=== PATIENT | female | born 1960 | race Caucasian/White ===

== ENCOUNTER 2021-01-14 11:29 | Outpatient (NON) | payer OTHER, SELFPAY | END 2021-01-14 11:30 | PROVIDERS: Visit Provider Family Medicine | DX: M54.5 Low back pain (principal) | CPT/HCPCS: 87077; 87086; 87088; 87186 ==

== ENCOUNTER 2021-02-25 14:34 | Outpatient (NON) | payer OTHER, SELFPAY | END 2021-02-25 14:35 | disposition home or self-care (01) | PROVIDERS: Visit Provider Family Medicine | DX: N39.0 Urinary tract infection, site not specified (principal) | CPT/HCPCS: 87077; 87086; 87088; 87186 ==

== ENCOUNTER 2021-04-20 14:16 | Outpatient (NON) | payer OTHER, SELFPAY | END 2021-04-20 14:17 | disposition home or self-care (01) | LOC: CHSLAB 14:17 | PROVIDERS: Visit Provider Nurse Practitioner Family | DX: N39.0 Urinary tract infection, site not specified (principal) | CPT/HCPCS: 87077; 87086; 87088; 87186 ==

== ENCOUNTER 2021-10-03 11:22 | Emergency (ER) | payer OTHER, SELFPAY ==
--- NOTE | ~2021-10-03 | XR_ITS ---
XR chest 1V portable DATE: 10/03/2021 12:34 INDICATION: Shortness of breath TECHNIQUE: Portable AP chest on 10/03/2021 at 1225 hours COMPARISON: None FINDINGS: Normal heart size. Is aortic tortuosity. No hilar or mediastinal enlargement. Moderate bilateral hyperinflation. No pulmonary infiltrate or consolidation, pleural effusion or pulm onary vascular congestion or pneumothorax. Bilateral glenohumeral osteoarthritis. Scoliosis and degenerative change of the thoracolumbar spine. IMPRESSION: Moderate bilateral hyperinflation, suggesting obstructive airways disease. No active cardiopulmonary disease Reviewed, dictated and finalized at location A. ERER IMPRESSION: Moderate bilateral hyperinflation, suggesting obstructive airways d isease. No active cardiopulmonary disease
[2021-10-03 11:25] VITALS: BP 136/84; PULSE 95; RESP 18; TEMP 36.4; O2SAT 92
--- NOTE | 2021-10-03 11:38 | ED.SOB ---
HPI - SOB/Dyspnea General Chief Complaint: Shortness of Breath/Dyspnea Stated Complaint: SOB, wheezing, productive cough Time Seen by Provider: 10/03/21 11:38 Source: patient History of Present Illness HPI Narrative: 60-year-old female, smoker with a history of bipolar disorder, GERD, IBS, chronic diarrhea, RLS, COPD on bronchodilators and inhaled steroids presents to the ER via EMS -- exposure to COVID 8 days ago -- cough with mucopurulent sputum for the past 3 days -- worsening shortness of breath for the past 3 days patient had COVID vaccination last year and had a booster 4 weeks ago. MD elicited complaint: shortness of breath and cough Pertinent past history: COPD Onset (ago): day(s) ( 3 days) Exacerbating factors: exertion Known history of: COPD Associated symptoms: denies other symptoms, cough and sputum production Related Data Home oxygen amount: none Home Medications Medication Instructions Recorded Confirmed albuterol sulfate 90 mcg/actuation 2 puff INHALATION BID 07/09/20 10/03/21 aerosol inhaler budesonide-formoterol HFA 80 2 puff INHALATION DAILY 07/09/20 10/03/21 mcg-4.5 mcg/actuation aerosol inhaler doxepin 25 mg capsule 25 mg PO DAILY cap 07/09/20 10/03/21 escitalopram oxalate 20 mg tablet 20 mg PO DAILY tablet 07/09/20 10/03/21 lithium carbonate 300 mg capsule 900 mg PO .COMPLEX cap 01/14/21 10/03/21 Allergies Allergy/AdvReac Type Severity Reaction Status Date / Time Penicillins Allergy Intermediate Rash Verified 08/20/21 14:55 Sulfa (Sulfonamide Allergy Intermediate rash Verified 08/20/21 14:55 Antibiotics) Review of Systems Review of Systems: All systems reviewed & are unremarkable except as noted in HPI and below Constitutional: Constitutional: Reports as per HPI Eyes: Eyes: Reports as per HPI ENT: Reports system reviewed and no additional complaints, except as documented Cardiovascular: Cardiovascular: Reports as per HPI and Reports no additional cardiovascular complaints Respiratory: Respiratory: Reports as per HPI and Reports no additional respiratory complaints Gastrointestinal: Gastrointestinal: Reports as per HPI and Reports no additional gastrointestinal complaints Genitourinary: Genitourinary: Reports no additional female genitourinary complaints Musculoskeletal: Musculoskeletal: Reports no additional musculoskeletal complaints Integumentary/Breasts: Skin/Breast: Reports system reviewed and no additional complaints, except as docu Neurologic: Reports system reviewed and no additional complaints, except as documented Psychiatric: Psychiatric: Reports no additional psychiatric complaints and Reports anxiety Endocrine: Endocrine: Reports no additional endocrine complaints Hematologic/Lymphatic: Hematologic/Lymphatic: Reports no additional hematologic/lymphatic complaints Allergic/Immunologic: Allergic/Immunologic: Reports no additional allergic/immunologic complaints [facility] Past Medical History Medical History Bipolar 1 disorder Chronic GERD COPD (chronic obstructive pulmonary disease) (Unknown) Depression Diarrhea IBS (irritable colon syndrome) Nausea Nicotine addiction Oral candidiasis Plantar wart, right foot Tremor UTI (urinary tract infection), uncomplicated Viral upper respiratory illness Surgical History Surgical History Hx laparoscopic cholecystectomy Family History Family History Father Hypertension Mother Cancer Social History Social History Smoking packs per day: 1.5 Smoking cigarettes per day: 30.0 Years smoked: 30 Smoking pack-years: 45.00 Smoking status: Current every day smoker Tobacco type: cigarettes Alcohol intake: never Substance use: never Exam Const: General: ill appe
--- NOTE | 2021-10-03 11:47 | ECG_ITS ---
Measurements Intervals [place] Rate: 87 P: 69 CA: 154 QRS: 51 QRSD: 95 T: 41 QT: 334 QTc: 403 Interpretive Statements SINUS RHYTHM BASELINE ARTIFACT- I, II, III, AVR, AVL, AVF, V4-V6 BORDERLINE ECG Electronically Signed On 10-03-2021 21:07:36 AIRCRAFT SERVICER by Eduardo Cooney D.O.
[2021-10-03 12:07] LABS: Basophils Absolute Auto 0.08 K/mm3 (0.00-0.10); Eosinophils Absolute Auto 0.42 K/mm3 (0.02-0.50); Eosinophils Percent Auto 5.5 % (1.0-6.0); Hematocrit 46.2 % (35.0-49.0); Hemoglobin 14.8 g/dL (12.0-15.0); Immature Granulocyte Absolute 0.03 K/mm3 (0.00-0.00); Immature Granulocyte Percent A 0.4 % (0.0-0.0); Lymphocytes Absolute Auto 1.68 K/mm3 (1.10-4.50); Lymphocytes Percent Auto 21.8 % (18.0-42.0); Mean Corpuscular Hemoglobin 33.7 pg (27.0-31.0); Mean Corpuscular Volume 105.2 fL (78.0-102.0); Mean Platelet Volume 9.6 fl (9.2-11.8); Monocytes Absolute Auto 0.77 K/mm3 (0.10-0.90); Neutrophils Absolute Auto 4.7 K/mm3 (1.7-7.2); Neutrophils Percent Auto 61.3 % (50.0-70.0); Platelet Count Result 293 K/mm3 (150-420); Red Blood Count 4.39 M/mm3 (4.20-5.40); Red Cell Distribution Width 12.1 % (11.6-14.4); White Blood Count 7.7 K/mm3 (4.8-10.8)
[2021-10-03] MEDS: ALBUTEROL SULFATE (*SP) INHALER 4 PUFF INHALATION (12:10)
[2021-10-03 12:25] VITALS: O2SAT 97
[2021-10-03 12:25] LABS: D Dimer 0.24 mg/L (0.19-0.50)
[2021-10-03 12:28] LABS: Influenza A QL RT-PCR Negative (Negative); Influenza B QL RT-PCR Negative (Negative); SARS-CoV-2 RNA PCR Negative (Negative)
[2021-10-03 12:34] LABS: Alanine Aminotransferase 24 U/L (14-59); Albumin Level 3.9 g/dL (3.4-5.0); Alkaline Phosphatase 91 U/L (46-116); Anion Gap 6 mmol/L (8-16); Aspartate Amino Transferase 17 U/L (15-37); Bilirubin,Total 0.4 mg/dL (0.00-1.00); Blood Urea Nitrogen 17 mg/dL (7-18); Calcium 9.7 mg/dL (8.5-10.1); Carbon Dioxide 30 mmol/L (21-32); Chloride 105 mmol/L (98-108); Estimated CRCL calculation 59 ml/min; Estimated Glomerular Filt Rate > 60; Glucose 103 mg/dL (70-99); NT Pro B Type Natriuretic Pept 87 pg/mL (0-125); Osmolality Calculated 293 mOsm/kg (285-295); Potassium 4.8 mmol/L (3.5-5.1); Sodium 141 mmol/L (136-145); Total Protein 7.1 g/dL (6.4-8.2); Troponin I 4.3 ng/L (0.00-60.4)
[2021-10-03] MEDS: AZITHROMYCIN 250 MG TABLET 500 MG PO (12:50)
[2021-10-03] MEDS: methylPREDNISolone SOD SUCC 125 MG VIAL IM (12:50)
[2021-10-03 13:04] VITALS: BP 121/78; PULSE 90; RESP 20; TEMP 37; O2SAT 92
== END 2021-10-03 13:05 | disposition home or self-care (01) ==
PROVIDERS: Emergency Provider Internal Medicine Critical Care Medicine; PCP Nurse Practitioner Family
DX: J44.1 Chronic obstructive pulmonary disease with (acute) exacerbation (principal); Z20.822 Contact with and (suspected) exposure to COVID-19
CPT/HCPCS: 36415; 71045; 80053; 83880; 84484; 85025; 85380; 87502; 93005; 96372; 99283; 99284; A9270; C9803; J2930; U0003; U0005

== ENCOUNTER 2021-12-10 17:30 | Emergency (ER) | payer OTHER, SELFPAY ==
--- NOTE | ~2021-12-10 | XR_ITS ---
EXAMINATION: XR chest 1V portable 12/10/2021 17:59 INDICATION: Wheezing. Dyspnea. PROCEDURE: AP portable chest COMPARISON: 10/03/2021 FINDINGS: The lungs are clear. The cardiomediastinal silhouette is within normal limits. There are no pleural effusions. There is no pneumothorax suspected. IMPRESSION: 1: NO ACUTE CARDIOPULMONARY DISEASE. Reviewed, dictated and finalized at location A. ICIAN CHIEF OF PATHOLOGY
[2021-12-10 17:37] VITALS: BP 123/76; PULSE 96; RESP 22; TEMP 37.1; O2SAT 94
--- NOTE | 2021-12-10 17:46 | ECG_ITS ---
Measurements Intervals [place] Rate: 89 P: 61 NV: 150 QRS: 44 QRSD: 89 T: 23 QT: 328 QTc: 401 Interpretive Statements SINUS RHYTHM NORMAL EKG COMPARED TO ECG 10/03/2021 12:20:25 NO SIGNIFICANT CHANGES Electronically Signed On 12-11-2021 10:20:05 INNOVATION MANAGER by Jaspal Cornejo M.D.
--- NOTE | 2021-12-10 17:49 | ED.WEAKNESS ---
HPI - Weakness General Chief complaint: Weakness Stated complaint: AMB Time Seen by Provider: 12/10/21 17:49 Source: patient and EMS Mode of arrival: EMS History of Present Illness HPI Narrative: this is a 61-year-old female with history of COPD with pie bipolar disorder and history of depression presents via EMS with generalized weakness the patient with history of COPD has audible wheezes is mildly short of breath with no chest pain no abdominal pain states that she has been having increased urinary frequency with no nausea vomiting chills with no fevers no diarrhea or constipation. MD Complaint: generalized weakness Onset (ago): day(s) Duration: constant Location: generalized Severity: moderate Related Data Home Medications Medication Instructions Recorded Confirmed albuterol sulfate 90 mcg/actuation 2 puff INHALATION BID 07/09/20 11/26/21 aerosol inhaler budesonide-formoterol HFA 80 2 puff INHALATION DAILY 07/09/20 11/26/21 mcg-4.5 mcg/actuation aerosol inhaler doxepin 25 mg capsule 25 mg PO DAILY cap 07/09/20 11/26/21 lithium carbonate 300 mg capsule 900 mg PO .COMPLEX cap 01/14/21 11/26/21 escitalopram oxalate 10 mg tablet 10 mg PO DAILY tablet 11/26/21 11/26/21 Allergies Allergy/AdvReac Type Severity Reaction Status Date / Time Penicillins Allergy Intermediate Rash Verified 11/26/21 10:36 Sulfa (Sulfonamide Allergy Intermediate rash Verified 11/26/21 10:36 Antibiotics) Review of Systems Review of Systems: All systems reviewed & are unremarkable except as noted in HPI and below PMFSH Past Medical History Medical History Bipolar 1 disorder Chronic GERD COPD (chronic obstructive pulmonary disease) (Unknown) Depression Diarrhea IBS (irritable colon syndrome) Nausea Nicotine addiction Oral candidiasis Plantar wart, right foot Tremor UTI (urinary tract infection), uncomplicated Viral upper respiratory illness Surgical History Surgical History Hx laparoscopic cholecystectomy Family History Family History Father Hypertension Mother Cancer Social History Social History Smoking packs per day: 1.5 Smoking cigarettes per day: 30.0 Years smoked: 30 Smoking pack-years: 45.00 Smoking status: Current every day smoker Tobacco type: cigarettes Alcohol intake: never Substance use: never Exam Const: General: no acute distress and alert Orientation/consciousness: patient oriented x3 HENMT: Head: normal to inspection Eyes: Conjunctivae: conjunctivae normal Pupils: Equal, round and reactive pupils present EOM: EOMs intact bilaterally Neck: Neck: normal visual inspection, no lymphadenopathy and no meningeal signs Chest: Chest palpation & inspection: normal inspection of the chest Resp: Effort & Inspection: normal respiratory effort Auscultation: wheezes and diminished lung sounds Cardio: Rate: regular rate Rhythm: regular rhythm GI: GI Palp: Yes Soft to palpation Percussion: Yes normal to percussion : General: Yes no CVA tenderness Back/Spine/Pelvis: Back: no CVA tenderness Skin: General skin exam: normal color Rashes: no rashes Neuro: General: patient oriented x3 and moves all extremities Extrem: General: normal to inspection and no pedal edema Psych: Mental Status: mental status grossly normal Affect: normal affect Attitude: cooperative Course Vital Signs Vital signs: Vital Signs Temperature 37.1 C 12/10/21 17:37 Pulse Rate 96 12/10/21 17:37 Respiratory Rate 22 H 12/10/21 17:37 Blood Pressure 123/76 12/10/21 17:37 Pulse Oximetry 94 12/10/21 17:37 Temperature 37.1 C 12/10/21 17:37 Pulse Rate 96 12/10/21 17:37 Respiratory Rate 22 H 12/10/21 17:37 Blood Pressure 123/76 12/10/21 1
[2021-12-10] MEDS: methylPREDNISolone SOD SUCC 125 MG VIAL IV PUSH (18:04)
[2021-12-10] MEDS: IPRATROPIUM 0.5 MG/ALBUTEROL SULFATE 2.5 MG AMPUL.NEB 3 ML INHALATION (18:05)
[2021-12-10 18:07] LABS: Basophils Absolute Auto 0.06 K/mm3 (0.00-0.10); Basophils Percent Auto 0.5 % (0.0-1.0); Eosinophils Absolute Auto 0.32 K/mm3 (0.02-0.50); Eosinophils Percent Auto 2.7 % (1.0-6.0); Hematocrit 46.2 % (35.0-49.0); Hemoglobin 14.9 g/dL (12.0-15.0); Immature Granulocyte Absolute 0.04 K/mm3 (0.00-0.00); Immature Granulocyte Percent A 0.3 % (0.0-0.0); Lymphocytes Absolute Auto 0.91 K/mm3 (1.10-4.50); Lymphocytes Percent Auto 7.6 % (18.0-42.0); Mean Corpuscular HGB Conc 32.3 g/dL (32.0-36.0); Mean Corpuscular Hemoglobin 33.6 pg (27.0-31.0); Mean Corpuscular Volume 104.3 fL (78.0-102.0); Mean Platelet Volume 9.8 fl (9.2-11.8); Monocytes Absolute Auto 0.56 K/mm3 (0.10-0.90); Monocytes Percent Auto 4.7 % (2.0-11.0); Neutrophils Absolute Auto 10.1 K/mm3 (1.7-7.2); Neutrophils Percent Auto 84.2 % (50.0-70.0); Platelet Count Result 289 K/mm3 (150-420); Red Blood Count 4.43 M/mm3 (4.20-5.40); Red Cell Distribution Width 11.9 % (11.6-14.4)
[2021-12-10 18:10] VITALS: O2SAT 94
[2021-12-10 18:15] VITALS: O2SAT 94
[2021-12-10 18:21] LABS: D Dimer 0.47 mg/L (0.19-0.50)
[2021-12-10 18:30] LABS: Alanine Aminotransferase 145 U/L (14-59); Albumin Level 3.8 g/dL (3.4-5.0); Alkaline Phosphatase 147 U/L (46-116); Anion Gap 7 mmol/L (8-16); Aspartate Amino Transferase 104 U/L (15-37); Bilirubin,Total 0.5 mg/dL (0.00-1.00); Blood Urea Nitrogen 5 mg/dL (7-18); Calcium 9.2 mg/dL (8.5-10.1); Carbon Dioxide 29 mmol/L (21-32); Chloride 103 mmol/L (98-108); Estimated CRCL calculation 72 ml/min; Estimated Glomerular Filt Rate > 60; Glucose 111 mg/dL (70-99); Magnesium 1.9 mg/dL (1.8-2.4); NT Pro B Type Natriuretic Pept 78 pg/mL (0-125); Osmolality Calculated 286 mOsm/kg (285-295); Potassium 4.2 mmol/L (3.5-5.1); Sodium 139 mmol/L (136-145); Total Protein 7.1 g/dL (6.4-8.2); Troponin I 5.1 ng/L (0.00-60.4)
[2021-12-10 18:43] LABS: Appearance Urine Clear (Clear); Bilirubin Urine Negative (Negative); Color Urine Light Yellow (Yellow); Glucose Urine UA Negative (Negative); Ketones Urine Negative (Negative); Leukocyte Esterase Ur Negative (Negative); Nitrate Urine Negative (Negative); Protein Urine Negative (Negative); Specific Grav Ur <= 1.005 (1.010-1.020); Urobilinogen Urine 0.2 mg/dL (0.2-1.0)
[2021-12-10 18:49] LABS: Add Urine Microscopic? YES; Bacteria Urine None seen /hpf; Blood Urine Trace-Intact (Negative); RBC Urine 0-2 /hpf (0-2); Squamous Epithelial Cell Urine None seen /hpf (Few); WBC Urine 0-3 /hpf (0-3)
[2021-12-10] MEDS: AZITHROMYCIN 250 MG TABLET 500 MG PO (19:10)
[2021-12-10 19:13] VITALS: BP 125/83; PULSE 100; RESP 20; O2SAT 87
--- NOTE | 2021-12-10 19:15 | PC.NURSE ---
Pt states she does not want to stay in the ER she wants to go home.
--- NOTE | 2021-12-10 19:18 | PC.NURSE ---
Per Dr. Miller pt is well enough to go home.
== END 2021-12-10 19:22 | disposition home or self-care (01) ==
PROVIDERS: Emergency Provider Emergency Medicine; PCP Nurse Practitioner Family
DX: J42 Unspecified chronic bronchitis (principal)
CPT/HCPCS: 36415; 71045; 80053; 81001; 83735; 83880; 84484; 85025; 85380; 87040; 93005; 96374; 99284; A9270; J2930

== ENCOUNTER 2022-05-25 02:12 | Emergency (ER) | payer OTHER, SELFPAY ==
[2022-05-25] VITALS (13 sets, daily range): BP systolic 144–187; BP diastolic 79–109; PULSE 74–79; RESP 18–28; TEMP 36.4–36.6; O2SAT 92–100
--- NOTE | ~2022-05-25 | XR_ITS ---
EXAMINATION: XR chest 1V portable DATE: 05/25/2022 02:38 INDICATION: Dyspnea, nausea, vomiting and chills. TECHNIQUE: frontal view of the chest was obtained. COMPARISON: Chest radiograph dated 12/10/2021 FINDINGS: Persistent increased lucency and some associated architectural distortion in the right mid and bilate ral upper lung zones suggestive but not diagnostic of COPD. Mild relative elevation of the left hemid iaphragm versus asymmetric mild hyperexpansion of the right lung. No focal airspace opacities, pulmon rola edema, pleural effusion or pneumothorax. The cardiomediastinal silhouette is normal. At least mod erate severity bilateral glenohumeral osteoarthritis. IMPRESSION: 1. No acute cardiopulmonary disease with appearance suggestive but not diagnostic of COPD. Reviewed, dictated and finalized at location A. IMPRESSION: 1. No acute cardiopulmonary disease with appearance suggestive but not diagnost ic of COPD.
--- NOTE | 2022-05-25 02:19 | ECG_ITS ---
Measurements Intervals [place] Rate: 75 P: 67 TN: 163 QRS: 30 QRSD: 90 T: 37 QT: 349 QTc: 390 Interpretive Statements SINUS RHYTHM NONSPECIFIC ST ABNORMALITY ABNORMAL ECG COMPARED TO ECG 12/10/2021 18:21:51 NO SIGNIFICANT CHANGESjavascript:perform('study_confirm'); Electronically Signed On 05-25-2022 8:42:36 CDT by Jaspal Cornejo M.D.
--- NOTE | 2022-05-25 02:21 | ED.GENADULT ---
HPI - General Adult General Chief complaint: Nausea/Vomiting/Diarrhea Stated complaint: vomiting/abd pain Time Seen by Provider: 05/25/22 02:19 History of Present Illness HPI narrative: this is a 61-year-old female presents ED with 1 day of nausea/vomiting/diarrhea. Patient says she has felt unwell throughout the day. She has had fever chills. She denies any sick contacts at home. She has x-ray is COVID. She has COPD and and has not taken her breathing treatments today. Related Data Home Medications Medication Instructions Recorded Confirmed albuterol sulfate 90 mcg/actuation 2 puff inhalation QID 07/09/20 05/25/22 aerosol inhaler budesonide-formoterol HFA 80 2 puff inhalation BID 07/09/20 05/25/22 mcg-4.5 mcg/actuation aerosol inhaler doxepin 25 mg capsule 25 mg PO DAILY 07/09/20 05/25/22 escitalopram oxalate 10 mg tablet 20 mg PO DAILY 11/26/21 05/25/22 lithium carbonate 300 mg 300 mg PO BID 03/26/22 05/25/22 tablet,extended release Allergies Allergy/AdvReac Type Severity Reaction Status Date / Time Penicillins Allergy Intermediate Rash Verified 03/26/22 08:52 Sulfa (Sulfonamide Allergy Intermediate rash Verified 03/26/22 08:52 Antibiotics) Review of Systems Review of Systems: CONSTITUTIONAL: Denies night sweats. EYES: No eye pain ENT: Denies rhinorrhea CARDIOVASCULAR: Denies palpitations RESPIRATORY: Denies hemoptysis GASTROINTESTINAL: Denies hematemesis GENITOURINARY: Denies hematuria. SKIN: Denies rash MUSCULOSKELETAL: Denies myalgia. NEUROLOGIC: Denies weakness. PSYCHIATRIC: Denies delusions [facility] Past Medical History Medical History Bipolar 1 disorder Chronic GERD COPD (chronic obstructive pulmonary disease) (Unknown) Depression Diarrhea IBS (irritable colon syndrome) Nausea Nicotine addiction Oral candidiasis Plantar wart, right foot Tremor UTI (urinary tract infection), uncomplicated Viral upper respiratory illness Surgical History Surgical History Hx laparoscopic cholecystectomy Family History Family History Father Hypertension Mother Cancer Social History Social History Smoking packs per day: 1 Smoking cigarettes per day: 20.0 Years smoked: 40 Smoking pack-years: 40.00 Smoking status: Current every day smoker Tobacco type: cigarettes Alcohol intake: never Substance use: never Substance use type: does not use Exam Narrative: APPEARANCE: Patient appears uncomfortable. Head atraumatic. EYES: PERRLA/EOMI, NOSE: Normal no drainage NECK: Supple, Trachea midline RESPIRATORY: scattered expiratory wheezing CARDIOVASCULAR: S1S2 appreciated ABDOMINAL: Soft, nontender, nondistended, bowel sounds are hyperactive MUSCULOSKELETAl: No obvious deformities NEURO: Alert. Moving 4/4 extremities SKIN:: patient is cool and clammy PSYCHIATRIC: Normal affect Course Vital Signs Vital signs: Vital Signs Temperature 97.6 F 05/25/22 02:25 Pulse Rate 79 05/25/22 02:25 Respiratory Rate 28 H 05/25/22 02:25 Blood Pressure 187/97 H 05/25/22 02:25 Pulse Oximetry 95 05/25/22 02:25 Oxygen Delivery Room Air 05/25/22 02:25 Temperature 97.6 F 05/25/22 02:25 Pulse Rate 77 05/25/22 03:15 Respiratory Rate 24 H 05/25/22 03:15 Blood Pressure 187/97 H 05/25/22 02:25 Pulse Oximetry 93 05/25/22 02:45 Oxygen Delivery Room Air 05/25/22 02:25 Medical Decision Making MDM Narrative Medical decision making narrative: A 61-year-old female presenting ED with 1 day of nausea vomiting and diarrhea. Lab work has been ordered. Chest x-ray, EKG COVID swab ordered She has been given symptomatic treatment for nausea and vomiting. She has been given fluid repletion. Her abdominal exam is benign an
[2022-05-25] MEDS: IPRATROPIUM BR 0.02% INH SOLN 0.5 MG/2.5 ML VIAL INHALATION (02:44)
[2022-05-25] MEDS: ALBUTEROL SULFATE NEB 2.5 MG/3 ML INH 5 MG INHALATION (02:44)
[2022-05-25 02:45] LABS: Basophils Absolute Auto 0.06 K/mm3 (0.00-0.10); Basophils Percent Auto 0.4 % (0.0-1.0); Eosinophils Absolute Auto 0.61 K/mm3 (0.02-0.50); Eosinophils Percent Auto 4.3 % (1.0-6.0); Hematocrit 45.2 % (35.0-49.0); Hemoglobin 14.9 g/dL (12.0-15.0); Immature Granulocyte Absolute 0.05 K/mm3 (0.00-0.00); Immature Granulocyte Percent A 0.4 % (0.0-0.0); Lymphocytes Absolute Auto 2.13 K/mm3 (1.10-4.50); Lymphocytes Percent Auto 15.2 % (18.0-42.0); Mean Corpuscular Hemoglobin 34.4 pg (27.0-31.0); Mean Corpuscular Volume 104.4 fL (78.0-102.0); Mean Platelet Volume 9.8 fl (9.2-11.8); Monocytes Absolute Auto 0.75 K/mm3 (0.10-0.90); Monocytes Percent Auto 5.3 % (2.0-11.0); Neutrophils Absolute Auto 10.5 K/mm3 (1.7-7.2); Neutrophils Percent Auto 74.4 % (50.0-70.0); Platelet Count Result 306 K/mm3 (150-420); Red Blood Count 4.33 M/mm3 (4.20-5.40); Red Cell Distribution Width 11.9 % (11.6-14.4); White Blood Count 14.1 K/mm3 (4.8-10.8)
[2022-05-25] MEDS: ONDANSETRON INJ 4 MG/2 ML VIAL IV PUSH (02:55)
[2022-05-25] MEDS: ACETAMINOPHEN 500 MG TABLET 1000 MG PO (02:56)
[2022-05-25] MEDS: FAMOTIDINE 20 MG/2 ML VIAL IV PUSH (02:57)
[2022-05-25] MEDS: SODIUM CHLORIDE 0.9% IV 1,000 ML 999 ML IV CONT (02:58)
[2022-05-25 03:00] LABS: Alanine Aminotransferase 17 U/L (14-59); Alkaline Phosphatase 96 U/L (46-116); Anion Gap 3 mmol/L (8-16); Aspartate Amino Transferase 15 U/L (15-37); Bilirubin,Total 0.9 mg/dL (0.00-1.00); Blood Urea Nitrogen 14 mg/dL (7-18); Calcium 9.8 mg/dL (8.5-10.1); Carbon Dioxide 33 mmol/L (21-32); Chloride 104 mmol/L (98-108); Estimated Glomerular Filt Rate > 60; Glucose 124 mg/dL (70-99); Lipase 66 U/L (73-393); Osmolality Calculated 291 mOsm/kg (285-295); Potassium 4.5 mmol/L (3.5-5.1); Sodium 140 mmol/L (136-145); Total Protein 6.9 g/dL (6.4-8.2)
[2022-05-25 03:07] LABS: SARS-CoV-2 Ag Negative (Negative)
[2022-05-25] MEDS: IBUPROFEN 400 MG TABLET 800 MG PO (03:13)
[2022-05-25 04:01] LABS: Appearance Urine Clear (Clear); Bilirubin Urine Negative (Negative); Color Urine Light Yellow (Yellow); Glucose Urine UA Negative (Negative); Ketones Urine Negative (Negative); Leukocyte Esterase Ur 1+ LEU/UL (Negative); Nitrate Urine Negative (Negative); Protein Urine Trace (Negative); Specific Grav Ur 1.015 (1.010-1.020); Urobilinogen Urine 0.2 mg/dL (0.2-1.0)
[2022-05-25 04:07] LABS: Add Urine Microscopic? YES; Bacteria Urine 2+ /hpf; Blood Urine Trace-lysed (Negative); RBC Urine 0-2 /hpf (0-2); Squamous Epithelial Cell Urine None seen /hpf (Few)
[2022-05-25] MEDS: CEPHALEXIN 500 MG CAPSULE PO (04:18)
== END 2022-05-25 04:38 | disposition home or self-care (01) ==
PROVIDERS: Emergency Provider Emergency Medicine; PCP Nurse Practitioner Family
DX: K52.9 Noninfective gastroenteritis and colitis, unspecified (principal); J44.9 Chronic obstructive pulmonary disease, unspecified; N39.0 Urinary tract infection, site not specified; Z20.822 Contact with and (suspected) exposure to COVID-19; F17.200 Nicotine dependence, unspecified, uncomplicated
CPT/HCPCS: 36415; 71045; 80053; 81001; 83690; 85025; 87086; 87088; 87426; 93005; 94640; 96360; 96361; 96374; 96375; 99284; A9270; C9803; J2405; J7030

== ENCOUNTER 2022-06-23 07:21 | Outpatient (CLI) | payer OTHER, SELFPAY ==
[2022-06-23 07:57] LABS: Basophils Absolute Auto 0.06 K/mm3 (0.00-0.10); Basophils Percent Auto 0.6 % (0.0-1.0); Eosinophils Absolute Auto 0.75 K/mm3 (0.02-0.50); Eosinophils Percent Auto 7.9 % (1.0-6.0); Hematocrit 45.6 % (35.0-49.0); Immature Granulocyte Absolute 0.03 K/mm3 (0.00-0.00); Immature Granulocyte Percent A 0.3 % (0.0-0.0); Lymphocytes Absolute Auto 3.37 K/mm3 (1.10-4.50); Lymphocytes Percent Auto 35.5 % (18.0-42.0); Mean Corpuscular HGB Conc 32.9 g/dL (32.0-36.0); Mean Corpuscular Volume 103.4 fL (78.0-102.0); Mean Platelet Volume 10.1 fl (9.2-11.8); Monocytes Percent Auto 7.4 % (2.0-11.0); Neutrophils Absolute Auto 4.6 K/mm3 (1.7-7.2); Neutrophils Percent Auto 48.3 % (50.0-70.0); Platelet Count Result 301 K/mm3 (150-420); Red Blood Count 4.41 M/mm3 (4.20-5.40); Red Cell Distribution Width 11.9 % (11.6-14.4); White Blood Count 9.5 K/mm3 (4.8-10.8)
[2022-06-23 08:49] LABS: Alanine Aminotransferase 19 U/L (14-59); Alkaline Phosphatase 100 U/L (46-116); Anion Gap 3 mmol/L (8-16); Aspartate Amino Transferase 16 U/L (15-37); Bilirubin,Total 0.6 mg/dL (0.00-1.00); Blood Urea Nitrogen 13 mg/dL (7-18); Calcium 9.5 mg/dL (8.5-10.1); Carbon Dioxide 31 mmol/L (21-32); Chloride 104 mmol/L (98-108); Estimated Glomerular Filt Rate > 60; Free T4 Free Thyroxine 1.05 ng/dL (0.76-1.46); Glucose 92 mg/dL (70-99); Osmolality Calculated 286 mOsm/kg (285-295); Potassium 4.4 mmol/L (3.5-5.1); Sodium 138 mmol/L (136-145); Thyroid Stimulating Hormone 1.27 uIU/mL (0.36-3.74); Total Protein 6.7 g/dL (6.4-8.2)
[2022-06-25 16:14] LABS: Lithium 0.85 mmol/L (0.60-1.20)
== END 2022-06-23 07:22 | disposition home or self-care (01) ==
PROVIDERS: PCP Nurse Practitioner Family
DX: Z79.899 Other long term (current) drug therapy (principal)
CPT/HCPCS: 36415; 80053; 80178; 84439; 84443; 85025

== ENCOUNTER 2022-06-28 15:24 | Outpatient (CLI) | payer OTHER, SELFPAY ==
[2022-06-28 16:42] LABS: SARS-CoV-2 RNA PCR Positive (Negative)
== END 2022-06-28 15:25 | disposition home or self-care (01) ==
LOC: CHSLAB 15:26
PROVIDERS: PCP Nurse Practitioner Family; Visit Provider Nurse Practitioner Family
DX: U07.1 COVID-19 (principal)
CPT/HCPCS: C9803; U0003; U0005

== ENCOUNTER 2022-07-13 08:03 | Outpatient (CLI) | payer OTHER, SELFPAY ==
[2022-07-13 08:44] LABS: Appearance Urine Clear (Clear); Bilirubin Urine Negative (Negative); Glucose Urine UA Negative (Negative); Ketones Urine Negative (Negative); Leukocyte Esterase Ur 1+ LEU/UL (Negative); Nitrate Urine Negative (Negative); Protein Urine Negative (Negative); Specific Grav Ur 1.015 (1.010-1.020); Urobilinogen Urine 0.2 mg/dL (0.2-1.0)
[2022-07-13 08:52] LABS: Add Urine Microscopic? YES; Bacteria Urine 1+ /hpf; Blood Urine Trace-Intact (Negative); Color Urine Light Yellow (Yellow); RBC Urine 0-2 /hpf (0-2); Squamous Epithelial Cell Urine Few /hpf (Few)
== END 2022-07-13 08:04 | disposition home or self-care (01) ==
LOC: CHSLAB 08:04
PROVIDERS: PCP Nurse Practitioner Family; Visit Provider Nurse Practitioner Family
DX: R39.9 Unspecified symptoms and signs involving the genitourinary system (principal)
CPT/HCPCS: 81001; 87077; 87086; 87088; 87186

== ENCOUNTER 2022-07-19 10:55 | Outpatient (RCR) | payer OTHER, SELFPAY ==
--- NOTE | 2022-07-19 11:37 | PTOPEVAL1 ---
Assessment and note entered by Dioni Hopkins Evaluation Information Assessment Status Evaluation Diagnosis right sciatica pain Subjective Information Pt. reports that she developed pain down her right leg from her buttock about 4 weeks ago. She reports that pain is constant. She reports that pain rarely wakes her, but is always present as soon as she wakes up. She reports that her biggest complication is an inability to put all her weight onto the right leg. She states that standing on one legs is impossible to put her pants on and she now has to sit to put her pants on. She reports that she just got assistance at home due to increasing pain and has help with completing activities in the community. She reports that her goal is to decrease her leg and buttock pain. Reported Pain Level Pain Score 2: Self Report Assessment PT Clinical Summary Pt. is a 61 year old female who enters the clinic with sciatic pain. She presents with impaired gait, impaired l.e. strength, impaired trunk mobility, functional decline and pain on this date . Conitnued treatment is indicated in order to improve these areas to allow the pt. to be able to improve ADL performance. Plan of Care Interventions Electrical Stimulation,Gait Training,Hot Pack/Cold Pack,Manual Therapy,Neuro Re-education, Therapeutic Activities,Therapeutic Exercise,Self- Care/Home Management PT Services Indicated Yes Treatment Frequency and 2x/week x 10 visits Duration These treatments will address the objective and functional deficits as defined above. The patient will be advanced safely and appropriately in order for the patient to progress towards his/her prior level of function. Additional exercises will be introduced and as well as a comprehensive home exercise program upon discharge, if needed, ?to ensure carryover of functional gains achieved in the clinic. This treatment plan has been reviewed and agreement upon by the patient.
== END 2022-08-04 18:00 | disposition home or self-care (01) ==
LOC: CHSPT 10:55
PROVIDERS: PCP Nurse Practitioner Family; Visit Provider Nurse Practitioner Family
DX: M54.31 Sciatica, right side (principal)
CPT/HCPCS: 97014; 97110; 97140; 97161; G0283

== ENCOUNTER 2022-10-30 23:02 | Emergency (ER) | payer OTHER, SELFPAY ==
--- NOTE | ~2022-10-30 | XR_ITS ---
EXAMINATION: XR chest 1V portable DATE: 10/30/2022 23:38 INDICATION: Shortness of breath. TECHNIQUE: A single frontal view of the chest was obtained. COMPARISON: Chest single view 05/25/2022 FINDINGS: The chest demonstrates clear lungs without pneumonia, pleural effusion, or pneumothorax. Th e heart size is normal. IMPRESSION: 1. No acute cardiopulmonary disease. Reviewed, dictated and finalized at location A. NDMAN/LINEMAN
[2022-10-30 23:05] VITALS: BP 144/99; PULSE 95; RESP 20; TEMP 37.1; O2SAT 90
[2022-10-30 23:07] VITALS: O2SAT 92
--- NOTE | 2022-10-30 23:14 | ECG_ITS ---
Measurements Intervals [place] Rate: 88 P: 62 [place]: 146 QRS: 27 QRSD: 84 T: 39 QT: 349 QTc: 423 Interpretive Statements SINUS RHYTHM POSSIBLE LEFT ATRIAL ENLARGEMENT ANTEROSEPTAL INFARCT, AGE INDETERMINATE BASELINE ARTIFACT- V1, V3-V4 ABNORMAL ECG COMPARED TO ECG 05/25/2022 02:28:24 MYOCARDIAL INFARCT FINDING NOW PRESENT Electronically Signed On 10-31-2022 7:29:16 LINER REROLL TENDER by Eduardo Cooney D.O.
[2022-10-30 23:38] VITALS: RESP 18; O2SAT 97
[2022-10-30] MEDS: IPRATROPIUM 0.5 MG/ALBUTEROL SULFATE 2.5 MG AMPUL.NEB 3 ML INHALATION (23:38)
[2022-10-30 23:40] VITALS: RESP 18; O2SAT 97
[2022-10-31 00:04] LABS: Basophils Absolute Auto 0.05 K/mm3 (0.00-0.10); Basophils Percent Auto 0.6 % (0.0-1.0); Eosinophils Percent Auto 5.7 % (1.0-6.0); Hematocrit 43.3 % (35.0-49.0); Hemoglobin 14.4 g/dL (12.0-15.0); Immature Granulocyte Absolute 0.03 K/mm3 (0.00-0.00); Immature Granulocyte Percent A 0.3 % (0.0-0.0); Lymphocytes Absolute Auto 1.08 K/mm3 (1.10-4.50); Lymphocytes Percent Auto 12.3 % (18.0-42.0); Mean Corpuscular HGB Conc 33.3 g/dL (32.0-36.0); Mean Corpuscular Volume 102.4 fL (78.0-102.0); Mean Platelet Volume 9.9 fl (9.2-11.8); Monocytes Absolute Auto 0.51 K/mm3 (0.10-0.90); Monocytes Percent Auto 5.8 % (2.0-11.0); Neutrophils Absolute Auto 6.6 K/mm3 (1.7-7.2); Neutrophils Percent Auto 75.3 % (50.0-70.0); Platelet Count Result 268 K/mm3 (150-420); Red Blood Count 4.23 M/mm3 (4.20-5.40); Red Cell Distribution Width 12.1 % (11.6-14.4); White Blood Count 8.8 K/mm3 (4.8-10.8)
[2022-10-31 00:06] LABS: Influenza A QL RT-PCR Negative (Negative); Influenza B QL RT-PCR Negative (Negative); SARS-CoV-2 RNA PCR Negative (Negative)
[2022-10-31 00:22] LABS: D Dimer 0.28 mg/L (0.19-0.50); Partial Thromboplastin Time 26.8 SEC (23.90-30.70); Prothrombin Time 10.9 Seconds (9.50-12.10)
[2022-10-31 00:27] LABS: Alanine Aminotransferase 68 U/L (14-59); Albumin Level 3.8 g/dL (3.4-5.0); Alkaline Phosphatase 122 U/L (46-116); Anion Gap 7 mmol/L (8-16); Aspartate Amino Transferase 20 U/L (15-37); Bilirubin,Total 0.5 mg/dL (0.00-1.00); Blood Urea Nitrogen 10 mg/dL (7-18); Carbon Dioxide 29 mmol/L (21-32); Chloride 103 mmol/L (98-108); Estimated CRCL calculation 71 ml/min; Estimated Glomerular Filt Rate > 60; Glucose 108 mg/dL (70-99); NT Pro B Type Natriuretic Pept 80 pg/mL (0-125); Osmolality Calculated 288 mOsm/kg (285-295); Potassium 3.9 mmol/L (3.5-5.1); Sodium 139 mmol/L (136-145); Troponin I 4.8 ng/L (0.00-60.4)
--- NOTE | 2022-10-31 00:30 | ED.SOB ---
HPI - SOB/Dyspnea General Chief Complaint: Shortness of Breath/Dyspnea Stated Complaint: Shortness of Breath Source: patient Mode of arrival: ambulatory Limitations: no limitations History of Present Illness HPI Narrative: this is a 61-year-old female with history of COPD chronic smoker that presents with shortness of breath, does have some audible wheezing with mild cough nonproductive no chest pain no abdominal pain no flank pain no dysuria no fever chills. MD elicited complaint: shortness of breath Pertinent past history: COPD Related Data Home Medications Medication Instructions Recorded Confirmed albuterol sulfate 90 mcg/actuation 2 puff inhalation QID 07/09/20 10/26/22 aerosol inhaler budesonide-formoterol HFA 80 2 puff inhalation BID 07/09/20 10/26/22 mcg-4.5 mcg/actuation aerosol inhaler doxepin 25 mg capsule 25 mg PO DAILY 07/09/20 10/26/22 escitalopram oxalate 10 mg tablet 20 mg PO DAILY 11/26/21 10/26/22 lithium carbonate 300 mg 300 mg PO BID 03/26/22 10/26/22 tablet,extended release Allergies Allergy/AdvReac Type Severity Reaction Status Date / Time Penicillins Allergy Intermediate Rash Verified 10/26/22 09:44 Sulfa (Sulfonamide Allergy Intermediate rash Verified 10/26/22 09:44 Antibiotics) Review of Systems Review of Systems: All systems reviewed & are unremarkable except as noted in HPI and below PMFSH Past Medical History Medical History Bipolar 1 disorder Chronic GERD COPD (chronic obstructive pulmonary disease) (Unknown) Depression Diarrhea IBS (irritable colon syndrome) Nausea Nicotine addiction Oral candidiasis Plantar wart, right foot Tremor UTI (urinary tract infection), uncomplicated Viral upper respiratory illness Surgical History Surgical History Hx laparoscopic cholecystectomy Family History Family History Father Hypertension Mother Cancer Social History Social History Smoking packs per day: 1 Smoking cigarettes per day: 20.0 Years smoked: 40 Smoking pack-years: 40.00 Smoking status: Current every day smoker Tobacco type: cigarettes Alcohol intake: never Substance use: never Substance use type: does not use Lack of Transportation: No Lack of Food: Never True Current Housing: I Have Housing Concerned About Future Housing: No Difficulty Paying Gas/Electric Bills: No Difficulty Paying for Meds: No Currently Unemployed: No Education: Trade/Vocational Certificate Difficulty w/ Childcare or Family Care: No Living arrangements: alone Occupation/Education: unemployed Exam Const: General: healthy appearing Nutritional Appearance: well nourished Orientation/consciousness: patient oriented x3 Limitations: no limitations HENMT: Head: normal to inspection Face/Nose/Sinus: Normal external nose present Face and sinus: normal facial exam Mouth: Yes Normal oral and palatal mucosa present Eyes: Conjunctivae: conjunctivae normal Pupils: Equal, round and reactive pupils present EOM: EOMs intact bilaterally Direct Ophthalmoscopy: no photophobia Neck: Neck: normal visual inspection Chest: Chest palpation & inspection: normal inspection of the chest Resp: Effort & Inspection: normal respiratory effort Auscultation: wheezes Cardio: Rate: regular rate Rhythm: regular rhythm GI: GI Palp: Yes Soft to palpation Auscultation: normal bowel sounds : General: Yes bladder normal to palpation External Female Exam: normal external appearance Skin: General skin exam: normal color Rashes: no rashes Wounds: no wounds Neuro: General: patient oriented x3, moves all extremities and no meningeal signs Extrem: General: normal to inspection, no clubbing, cyanosis or edema and no pedal edema Ps
[2022-10-31 00:43] VITALS: BP 122/69; PULSE 69; RESP 20; TEMP 36.7; O2SAT 100
--- NOTE | 2022-11-06 13:45 | PC.NURSE ---
final blood culture reports x2 reviewed. no growth after 5 days. no change in plan of care.
== END 2022-10-31 00:45 | disposition home or self-care (01) ==
PROVIDERS: Emergency Provider Emergency Medicine; PCP Nurse Practitioner Family
DX: J44.9 Chronic obstructive pulmonary disease, unspecified (principal); F17.210 Nicotine dependence, cigarettes, uncomplicated; Z20.822 Contact with and (suspected) exposure to COVID-19
CPT/HCPCS: 36415; 71045; 80053; 83735; 83880; 84484; 85025; 85380; 85610; 85730; 87040; 87502; 93005; 94640; 99284; U0003; U0005

== ENCOUNTER 2022-12-08 10:55 | Outpatient (CLI) | payer OTHER, SELFPAY ==
--- NOTE | ~2022-12-08 | XR_ITS ---
Right Shoulder Technique: AP and scapular Y views were obtained. Clinical History: Pain Findings: No fracture or dislocation is seen. Osseous alignment is anatomic. There is mild to moderat e glenohumeral joint degenerative change. The acromioclavicular joint space is preserved. Soft tissue s are unremarkable. Impression: Mild to moderate glenohumeral joint degenerative change. Reviewed, dictated and finalized at location M. EL MAKER Impression: Mild to moderate glenohumeral joint degenerative change.
--- NOTE | ~2022-12-08 | MM_ITS ---
EXAMINATION: MM screening johan BI w magi HISTORY: Screening mammogram TECHNIQUE: Craniocaudal and mediolateral oblique 3-D tomosynthesis images were obtained and synthetic 2-D images were generated. CAD analysis was submitted and interpreted. COMPARISON: No prior mammogram is available for comparison at this institution. BREAST PARENCHYMAL COMPOSITION: The breasts are almost entirely fatty. FINDINGS: There is no evidence of suspicious mass, calcification, or architectural distortion to sugg est malignancy in either breast. There has been no suspicious interval change. IMPRESSION: 1. No mammographic evidence of malignancy. 2. Recommend routine screening mammography in one year. BI-RADS Category 1: Negative Reviewed, dictated and finalized at location A. ENTRY MACHINE OPERATOR
== END 2022-12-08 10:56 | disposition home or self-care (01) ==
LOC: CHSIMG 10:56
PROVIDERS: PCP Nurse Practitioner Family; Visit Provider Nurse Practitioner Family
DX: Z12.31 Encounter for screening mammogram for malignant neoplasm of breast (principal); M25.511 Pain in right shoulder
CPT/HCPCS: 73030; 77063; 77067

== ENCOUNTER 2023-04-06 12:05 | Outpatient (CLI) | payer OTHER, SELFPAY ==
--- NOTE | ~2023-04-06 | XR_ITS ---
Lumbosacral Spine: AP and lateral views Clinical History: Pain Findings: There is mild levoscoliosis. Probable 1 cm anterolisthesis of L5 over S1. There is advanced degenerative disc narrowing at L1-L2. There is advanced facet arthropathy from L3 through S1. The sa croiliac joints are normally outlined. Impression: Mild levoscoliosis. Moderate degenerative spondylosis at the lower lumbar spine, as detailed above. Probable 1 cm anterolisthesis of L5 over S1. Reviewed, dictated and finalized at location M. Impression: Mild levoscoliosis. Moderate degenerative spondylosis at the lower lumbar spine, as detailed above. Probable 1 cm anterolisthesis of L5 over S1.
--- NOTE | ~2023-04-06 | XR_ITS ---
AP and lateral views of the left hip Clinical history: Pain Findings: No acute fracture or dislocation is seen. There is moderate degenerative change of the left hip joint, joint space narrowing and mild bony productive change. Soft tissues are unremarkable. Impression: Moderate osteoarthritis of the left hip joint, as detailed above. Reviewed, dictated and finalized at location M. Impression: Moderate osteoarthritis of the left hip joint, as detailed above.
== END 2023-04-06 12:06 | disposition home or self-care (01) ==
LOC: CHSIMG 12:07
PROVIDERS: PCP Nurse Practitioner Family; Visit Provider Nurse Practitioner Family
DX: M25.552 Pain in left hip (principal); M54.50 Low back pain, unspecified; M16.12 Unilateral primary osteoarthritis, left hip; M43.06 Spondylolysis, lumbar region; M41.87 Other forms of scoliosis, lumbosacral region
CPT/HCPCS: 72100; 73502

== ENCOUNTER 2023-05-03 10:39 | Outpatient (NON) | payer OTHER, SELFPAY ==
[2023-05-03 10:58] LABS: Appearance Urine Clear (Clear); Bilirubin Urine Negative (Negative); Blood Urine Negative (Negative); Color Urine Light Yellow (Yellow); Glucose Urine UA Negative (Negative); Ketones Urine Negative (Negative); Leukocyte Esterase Ur Trace (Negative); Nitrate Urine Negative (Negative); Protein Urine Negative (Negative); Urobilinogen Urine 0.2 mg/dL (0.2-1.0); pH Urine 6.5 (5.0-8.0)
[2023-05-03 11:05] LABS: Add Urine Microscopic? YES; Bacteria Urine Trace /hpf; RBC Urine None seen /hpf (0-2); Squamous Epithelial Cell Urine Few /hpf (Few)
== END 2023-05-03 10:40 | disposition home or self-care (01) ==
LOC: CHSLAB 10:41
PROVIDERS: Visit Provider Nurse Practitioner Family
DX: N39.0 Urinary tract infection, site not specified (principal); R82.90 Unspecified abnormal findings in urine
CPT/HCPCS: 81001; 87077; 87086; 87088

== ENCOUNTER 2023-06-04 10:34 | Outpatient (CLI) | payer OTHER, SELFPAY ==
--- NOTE | ~2023-06-04 | MR_ITS ---
MRI of the lumbar spine Clinical History: Back pain Technique: Axial T2-weighted images, and sagittal T1-weighted, T2-weighted, and T2 fat-sat images wer e acquired. Findings: No fracture identified. 3 mm anterolisthesis of L5 over S1 present. There are reactive roro ow signal changes about the L1-L2 disc space due to underlying degenerative disc disease. At L1-L2, there is severe degenerative disc narrowing. There is mild diffuse disc bulge and moderate facet arthropathy. No rommel central canal stenosis. There is severe left neural foraminal narrowing, and probable moderate right neural foraminal narrowing. At L2-L3, there is moderate degenerative disc narrowing. No disc bulge or herniation evident. There i s mild facet arthropathy. No central canal stenosis. Possible mild right neural foraminal narrowing. Left neural foramen preserved. At L3-L4, there is diffuse disc bulge and moderate facet arthropathy. No rommel central canal stenosis . No definite neural foraminal narrowing. At L4-L5, there is disc bulge and severe facet arthropathy. No rommel central canal stenosis. Bilatera l neural foramina are preserved. At L5-S1, there is diffuse disc bulge and severe facet arthropathy. There is a probable 8 mm synovial cyst, likely arising from the left facet joint, and extending into the posterior aspect of the spina l canal (axial image 27). No rommel central canal stenosis. There is mild left neural foraminal narrow ing. Right neural foramen preserved. Paravertebral soft tissues are unremarkable. Impression: [id number] degenerative spondylosis, as detailed above. Probable 8 mm left-sided synovial cyst at L5-S1, as detailed above. 3 mm anterolisthesis of L5 over S1. Reviewed, dictated and finalized at [facility]. Impression: [id number] degenerative spondylosis, as detailed above. Probable 8 mm lef t-sided synovial cyst at L5-S1, as detailed above. 3 mm anterolisthesis of L5 over S1.
== END 2023-06-04 10:35 | disposition home or self-care (01) ==
LOC: CHSIMG 10:35
PROVIDERS: PCP Nurse Practitioner Family; Visit Provider Nurse Practitioner
DX: M54.50 Low back pain, unspecified (principal); M43.06 Spondylolysis, lumbar region; M71.38 Other bursal cyst, other site
CPT/HCPCS: 72148

== ENCOUNTER 2023-08-09 13:55 | Outpatient (CLI) | payer OTHER, SELFPAY ==
--- NOTE | ~2023-08-09 | XR_ITS ---
XR knee LT min 4V 08/09/2023 14:42 Indication: Left knee pain Procedure: 4 views left knee Comparison: No prior studies for comparison. Findings: No fracture, subluxation or dislocation. No significant joint effusion. No foreign bodies. There is anatomic alignment. Impression: 1: No significant bone or joint abnormality. Reviewed, dictated and finalized at location A. Impression: 1: No significant bone or joint abnormality.
--- NOTE | ~2023-08-09 | XR_ITS ---
XR sacroiliac joints min 3V 08/09/2023 14:42 Indication: Pelvic pain Procedure: 4 views of the sacroiliac joints Comparison: No prior studies for comparison. Findings: There is mild bilateral symmetric osteoarthritis of the sacroiliac joints. No erosive gutierrez es or ankylosis. Sacral foramen are symmetric. There is severe left and mild right osteoarthritis of the hips. There is lower lumbar spondylosis partially visualized. Pelvic rings are intact. 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 Reviewed, dictated and finalized at location A. 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
== END 2023-08-09 13:56 | disposition home or self-care (01) ==
LOC: CHSIMG 13:57
PROVIDERS: PCP Nurse Practitioner Family; Visit Provider Nurse Practitioner Family
DX: M25.562 Pain in left knee (principal); M46.1 Sacroiliitis, not elsewhere classified; M85.89 Other specified disorders of bone density and structure, multiple sites; M16.0 Bilateral primary osteoarthritis of hip
CPT/HCPCS: 72202; 73564

== ENCOUNTER 2023-09-21 10:19 | Outpatient (CLI) | payer OTHER, SELFPAY ==
[2023-09-21 11:28] LABS: Basophils Absolute Auto 0.07 K/mm3 (0.00-0.10); Basophils Percent Auto 0.5 % (0.0-1.0); Eosinophils Absolute Auto 0.34 K/mm3 (0.02-0.50); Eosinophils Percent Auto 2.6 % (1.0-6.0); Hematocrit 46.9 % (35.0-49.0); Hemoglobin 14.9 g/dL (12.0-15.0); Immature Granulocyte Absolute 0.05 K/mm3 (0.00-0.00); Immature Granulocyte Percent A 0.4 % (0.0-0.0); Lymphocytes Absolute Auto 1.56 K/mm3 (1.10-4.50); Lymphocytes Percent Auto 11.9 % (18.0-42.0); Mean Corpuscular HGB Conc 31.8 g/dL (32.0-36.0); Mean Corpuscular Hemoglobin 33.9 pg (27.0-31.0); Mean Corpuscular Volume 106.6 fL (78.0-102.0); Mean Platelet Volume 9.7 fl (9.2-11.8); Monocytes Absolute Auto 0.44 K/mm3 (0.10-0.90); Monocytes Percent Auto 3.4 % (2.0-11.0); Neutrophils Absolute Auto 10.6 K/mm3 (1.7-7.2); Neutrophils Percent Auto 81.2 % (50.0-70.0); Platelet Count Result 373 K/mm3 (150-420); Red Cell Distribution Width 12.1 % (11.6-14.4); White Blood Count 13.1 K/mm3 (4.8-10.8)
[2023-09-21 12:00] LABS: Alanine Aminotransferase 21 U/L (14-59); Alkaline Phosphatase 114 U/L (46-116); Anion Gap 1 mmol/L (8-16); Aspartate Amino Transferase 18 U/L (15-37); Bilirubin,Total 0.5 mg/dL (0.00-1.00); Blood Urea Nitrogen 10 mg/dL (7-18); Calcium 9.7 mg/dL (8.5-10.1); Carbon Dioxide 35 mmol/L (21-32); Chloride 101 mmol/L (98-108); Estimated Glomerular Filt Rate > 60; Free T4 Free Thyroxine 1.26 ng/dL (0.76-1.46); Glucose 97 mg/dL (70-99); Osmolality Calculated 283 mOsm/kg (285-295); Potassium 4.8 mmol/L (3.5-5.1); Sodium 137 mmol/L (136-145); Thyroid Stimulating Hormone 0.62 uIU/mL (0.36-3.74); Total Protein 6.9 g/dL (6.4-8.2)
== END 2023-09-21 10:20 | disposition home or self-care (01) ==
LOC: CHSLAB 10:28
PROVIDERS: PCP Nurse Practitioner Family
DX: Z79.899 Other long term (current) drug therapy (principal)
CPT/HCPCS: 36415; 80053; 80178; 84439; 84443; 85025

== ENCOUNTER 2023-10-01 15:13 | Emergency (ER) | payer OTHER, SELFPAY ==
[2023-10-01 16:28] VITALS: BP 154/81; PULSE 89; RESP 18; TEMP 36.6; O2SAT 98
--- NOTE | 2023-10-01 16:30 | PC.NURSE ---
Patient states pain has improved since getting medication from EMS
--- NOTE | 2023-10-01 16:39 | ED.BACK ---
HPI - Back Pain/Injury General Chief Complaint: Back Pain/Injury Stated Complaint: back pain Time Seen by Provider: 10/01/23 16:14 Source: patient and EMS Mode of arrival: ambulatory Limitations: no limitations History of Present Illness HPI Narrative: This is a 62-year-old female with chronic back pain sees Pain Management currently on muscle relaxer and gabapentin which is not controlling, patient did receive dose of Toradol EMS her currently is about 3 no saddle paresthesias no neurological deficits no fever chills pain is right paravertebral area with MD elicited complaint: back pain Pertinent past history: prior back pain Onset (ago): day(s) Timing: constant Severity: moderate Quality: dull and spasming Related Data Home Medications Medication Instructions Recorded Confirmed albuterol sulfate 90 mcg/actuation 2 puff inhalation QID 07/09/20 06/06/23 aerosol inhaler budesonide-formoterol HFA 80 2 puff inhalation BID 07/09/20 06/06/23 mcg-4.5 mcg/actuation aerosol inhaler doxepin 25 mg capsule 25 mg PO DAILY 07/09/20 06/06/23 escitalopram oxalate 10 mg tablet 20 mg PO DAILY 11/26/21 06/06/23 lithium carbonate 300 mg 300 mg PO BID 03/26/22 06/06/23 tablet,extended release Allergies Allergy/AdvReac Type Severity Reaction Status Date / Time Penicillins Allergy Intermediate Rash Verified 09/14/23 08:24 Sulfa (Sulfonamide Allergy Intermediate rash Verified 09/14/23 08:24 Antibiotics) Review of Systems Review of Systems: All systems reviewed & are unremarkable except as noted in HPI and below PMFSH Past Medical History Medical History Bipolar 1 disorder Chronic GERD COPD (chronic obstructive pulmonary disease) (Unknown) Depression Diarrhea IBS (irritable colon syndrome) Nausea Nicotine addiction Oral candidiasis Plantar wart, right foot Tremor UTI (urinary tract infection), uncomplicated Viral upper respiratory illness Surgical History Surgical History Hx laparoscopic cholecystectomy Family History Family History Father Hypertension Mother Cancer Sibling Rheumatoid arthritis Grandparent Rheumatoid arthritis Social History Social History Smoking packs per day: 1 Smoking cigarettes per day: 20.0 Years smoked: 40 Smoking pack-years: 40.00 Smoking status: Current every day smoker Tobacco type: cigarettes Alcohol intake: never Substance use: never Substance use type: does not use Lack of Transportation: No Lack of Food: Sometimes True Current Housing: I Have Housing Concerned About Future Housing: No Difficulty Paying Gas/Electric Bills: No Difficulty Paying for Meds: No Currently Unemployed: No Education: High School Diploma/GED Difficulty w/ Childcare or Family Care: No Living arrangements: alone Occupation/Education: unemployed Exam Const: General: healthy appearing Nutritional Appearance: well nourished Orientation/consciousness: patient oriented x3 Limitations: no limitations Chest: Chest palpation & inspection: normal inspection of the chest Resp: Effort & Inspection: normal respiratory effort Auscultation: clear to auscultation bilaterally Cardio: Rate: regular rate Rhythm: regular rhythm GI: GI Palp: Yes Soft to palpation Auscultation: normal bowel sounds Urinary Catheter: Urinary Catheter: patent and draining Back/Spine/Pelvis: Back: no CVA tenderness Skin: General skin exam: normal color Neuro: General: patient oriented x3, moves all extremities, no meningeal signs and no focal motor deficits Extrem: Other: right lower back L4-5 right paravertebral tenderness negative straight leg raise test. Psych: Mental Status: mental status grossly normal Course Course Emerg
[2023-10-01 16:55] VITALS: BP 154/81; PULSE 89; RESP 18; TEMP 36.6; O2SAT 98
== END 2023-10-01 16:55 | disposition home or self-care (01) ==
PROVIDERS: Emergency Provider Emergency Medicine; PCP Nurse Practitioner Family
DX: M54.50 Low back pain, unspecified (principal); J44.9 Chronic obstructive pulmonary disease, unspecified; F17.210 Nicotine dependence, cigarettes, uncomplicated
CPT/HCPCS: 99283

== ENCOUNTER 2023-11-02 13:03 | Outpatient (NON) | payer OTHER, SELFPAY ==
[2023-11-02 13:23] LABS: Appearance Urine Clear (Clear); Bilirubin Urine Negative (Negative); Blood Urine Negative (Negative); Color Urine Light Yellow (Yellow); Glucose Urine UA Negative (Negative); Ketones Urine Negative (Negative); Leukocyte Esterase Ur Negative (Negative); Nitrate Urine Negative (Negative); Protein Urine Negative (Negative); Specific Grav Ur 1.015 (1.010-1.020); Urobilinogen Urine 0.2 mg/dL (0.2-1.0)
[2023-11-02 13:28] LABS: Add Urine Microscopic? NO
== END 2023-11-02 13:04 | disposition home or self-care (01) ==
LOC: CHSLAB 13:05
PROVIDERS: Visit Provider Nurse Practitioner Family
DX: R32 Unspecified urinary incontinence (principal); R35.0 Frequency of micturition
CPT/HCPCS: 81003; 87077; 87086; 87088

== ENCOUNTER 2023-11-18 13:52 | Outpatient (CLI) | payer OTHER, SELFPAY ==
[2023-11-18 14:14] LABS: Appearance Urine Clear (Clear); Bilirubin Urine Negative (Negative); Blood Urine Negative (Negative); Color Urine Light Yellow (Yellow); Glucose Urine UA Negative (Negative); Ketones Urine Negative (Negative); Leukocyte Esterase Ur Negative (Negative); Nitrate Urine Negative (Negative); Protein Urine Negative (Negative); Urobilinogen Urine 0.2 mg/dL (0.2-1.0)
[2023-11-18 14:35] LABS: Add Urine Microscopic? NO
== END 2023-11-18 13:53 | disposition home or self-care (01) ==
LOC: CHSLAB 13:55
PROVIDERS: PCP Nurse Practitioner Family; Visit Provider Nurse Practitioner Family
DX: N39.0 Urinary tract infection, site not specified (principal)
CPT/HCPCS: 81003; 87086; 87088

== ENCOUNTER 2023-12-23 10:22 | Outpatient (CLI) | payer OTHER, SELFPAY ==
[2023-12-23 10:48] LABS: Basophils Absolute Auto 0.06 K/mm3 (0.00-0.10); Basophils Percent Auto 0.8 % (0.0-1.0); Eosinophils Absolute Auto 0.51 K/mm3 (0.02-0.50); Eosinophils Percent Auto 6.9 % (1.0-6.0); Hematocrit 47.4 % (35.0-42.0); Immature Granulocyte Absolute 0.01 K/mm3 (0.00-0.00); Immature Granulocyte Percent A 0.1 % (0.0-0.0); Lymphocytes Absolute Auto 1.96 K/mm3 (1.10-4.50); Lymphocytes Percent Auto 26.5 % (18.0-42.0); Mean Corpuscular HGB Conc 31.6 g/dL (32-36); Mean Corpuscular Hemoglobin 32.9 pg (27.0-31.0); Mean Corpuscular Volume 103.9 fL (78.0-102.0); Mean Platelet Volume 9.3 fl (9.2-11.8); Monocytes Absolute Auto 0.41 K/mm3 (0.10-0.90); Monocytes Percent Auto 5.5 % (2.0-11.0); Neutrophils Absolute Auto 4.44 K/mm3 (1.70-7.20); Neutrophils Percent Auto 60.2 % (50.0-70.0); Platelet Count Result 288 K/mm3 (150-420); Red Blood Count 4.56 M/mm3 (4.20-5.40); Red Cell Distribution Width 12.1 % (11.6-14.4); White Blood Count 7.4 K/mm3 (4.8-10.8)
[2023-12-23 11:29] LABS: Alanine Aminotransferase 104 U/L (14-59); Albumin Level 3.7 g/dL (3.4-5.0); Alkaline Phosphatase 207 U/L (46-116); Anion Gap 6 mmol/L (8-16); Aspartate Amino Transferase 55 U/L (15-37); Bilirubin,Total 0.6 mg/dL (0.00-1.00); Blood Urea Nitrogen 10 mg/dL (7-18); Carbon Dioxide 31 mmol/L (21-32); Chloride 103 mmol/L (98-108); Estimated Glomerular Filt Rate > 60; Glucose 88 mg/dL (70-99); Osmolality Calculated 288 mOsm/kg (285-295); Potassium 4.6 mmol/L (3.5-5.1); Sodium 140 mmol/L (136-145); Total Protein 6.4 g/dL (6.4-8.2)
[2023-12-23 11:32] LABS: CRP < 0.5 mg/dL (0.0-0.9)
[2023-12-23 11:52] LABS: Thyroid Stimulating Hormone Reflex 0.53 u/IU/mL (0.36-3.74)
[2023-12-28 21:42] LABS: Hepatitis A Antibody IgM Nonreactive; Hepatitis B Core Antibody Nonreactive (Nonreactive); Hepatitis B Surface Antigen Nonreactive (Nonreactive); Hepatitis C Virus Antibody Nonreactive
== END 2023-12-23 10:23 | disposition home or self-care (01) ==
LOC: CHSLAB 10:27
PROVIDERS: PCP Nurse Practitioner Family; Visit Provider Family Medicine
DX: R74.01 Elevation of levels of liver transaminase levels (principal); E03.9 Hypothyroidism, unspecified; R63.4 Abnormal weight loss
CPT/HCPCS: 36415; 80053; 80074; 84443; 85025; 86140

== ENCOUNTER 2024-01-23 08:31 | Outpatient (CLI) | payer OTHER, SELFPAY ==
--- NOTE | ~2024-01-23 | US_ITS ---
Limited Abdominal Sonogram: Real-time sonographic imaging of the right upper quadrant was performed. Clinical History: Abnormal liver enzymes Findings: The liver appears normal with no evidence of mass lesion or bile duct dilatation. Main por roni vein demonstrates normal direction of flow. The gallbladder is absent, compatible prior cholecyst ectomy. The common bile duct measures 12 mm. The visualized pancreas, aorta, and IVC are unremarkabl e. Impression: Dilated common bile duct may be related to prior cholecystectomy. Reviewed, dictated and finalized at location M. Impression: Dilated common bile duct may be related to prior cholecystectomy.
== END 2024-01-23 08:32 | disposition home or self-care (01) ==
PROVIDERS: PCP Family Medicine; Visit Provider Family Medicine
DX: R74.01 Elevation of levels of liver transaminase levels (principal)
CPT/HCPCS: 76705

== ENCOUNTER 2024-01-31 10:48 | Outpatient (CLI) | payer OTHER, SELFPAY ==
--- NOTE | ~2024-01-31 | XR_ITS ---
XR shoulder RT min 2V DATE: 01/31/2024 11:17 INDICATION: Fall. Right shoulder injury, pain. TECHNIQUE: 4 views COMPARISON: 12/08/2022 right shoulder FINDINGS: There is severe osteoarthritic change at the right glenohumeral joint. There is prominent linear lucency along the humeral head laterally on the linear projection. Consider differential diagnosis of fracture, recent or old, versus avascular necrosis or severe osteoarthriti c changes. Consider CT or MR examination for further evaluation. No displaced fracture or dislocation is evident. There is severe osteoarthritic change at the right glenohumeral joint with severe joint space narrowi ng, prominent spurring. Glenohumeral intra-articular calcified loose bodies may be present. Osteopenia. Degenerative changes of the cervical and thoracic spine. IMPRESSION: Nonspecific lucency of right humeral head; differential diagnosis includes remote or rece nt fracture versus avascular necrosis or prominent osteoarthritic change. Consider CT or MR imaging f urther evaluation Severe right glenohumeral osteoarthritis Reviewed, dictated and finalized at location A. IMPRESSION: Nonspecific lucency of right humeral head; differential diagnosis i ncludes remote or recent fracture versus avascular necrosis or prominent osteoa rthritic change. Consider CT or MR imaging further evaluation Severe right glenohumeral osteoarthritis
== END 2024-01-31 10:49 | disposition home or self-care (01) ==
LOC: CHSIMG 10:49
PROVIDERS: PCP Family Medicine; Visit Provider Family Medicine
DX: S49.91XA Unspecified injury of right shoulder and upper arm, initial encounter (principal); G93.0 Cerebral cysts; M19.011 Primary osteoarthritis, right shoulder
CPT/HCPCS: 73030

== ENCOUNTER 2024-03-01 10:34 | Outpatient (CLI) | payer OTHER, SELFPAY ==
--- NOTE | ~2024-03-01 | MR_ITS ---
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 TECHNIQUE: Magnetic resonance imaging (MRI) of the right shoulder was performed without intravenous c ontrast. Sequences included axial PD-weighted FS FSE, coronal oblique PD-weighted FS FSE and T2-weigh cassie FS FSE, and sagittal oblique T2-weighted FS FSE and T1-weighted FSE. COMPARISON: Right shoulder radiographs 01/31/2024 FINDINGS: Coracoacromial arch: The acromion undersurface is flat in morphology (type I). There is chronic mild widening of acromiocl avicular joint. There is mild subacromial/subdeltoid bursitis. Rotator cuff: There is mild supraspinatus tendinopathy. Infraspinatus tendon and teres minor tendon are normal. The re is mild subscapularis tendinopathy. There is no asymmetric fatty of atrophy of the rotator cuff mu scle bellies. Biceps tendon and glenoid labrum: There is a complete tear of proximal biceps tendon. Fluid: There is a large glenohumeral joint effusion with loose bodies. Bones/cartilage: There is no evidence of osteonecrosis. There is extensive full-thickness cartilage loss of humeral he ad and glenoid with bone volume loss. IMPRESSION: 1. Advanced glenohumeral joint osteoarthritis. 2. Large glenohumeral joint effusion with loose bodies. 3. Complete tear of proximal biceps tendon. 4. Mild rotator cuff tendinopathy. No tear. Reviewed, dictated and finalized at location A.
== END 2024-03-01 10:35 | disposition home or self-care (01) ==
LOC: CHSIMG 10:34
PROVIDERS: PCP Family Medicine; Visit Provider Family Medicine
DX: M87.111 Osteonecrosis due to drugs, right shoulder (principal); T38.0X5A Adverse effect of glucocorticoids and synthetic analogues, initial encounter; M19.011 Primary osteoarthritis, right shoulder; M25.411 Effusion, right shoulder; M24.011 Loose body in right shoulder; S46.211A Strain of muscle, fascia and tendon of other parts of biceps, right arm, initial encounter
CPT/HCPCS: 73221

== ENCOUNTER 2024-06-21 11:41 | Outpatient (CLI) | payer OTHER, SELFPAY ==
[2024-06-21 12:53] LABS: Rheumatoid Factor Screen Negative (Negative)
[2024-06-25 15:43] LABS: Lithium 0.5 mmol/L (0.6-1.2)
== END 2024-06-21 11:42 | disposition home or self-care (01) ==
LOC: CHSLAB 11:44
PROVIDERS: PCP Family Medicine; Visit Provider Nurse Practitioner Family
DX: F31.9 Bipolar disorder, unspecified (principal); G89.29 Other chronic pain; M25.50 Pain in unspecified joint
CPT/HCPCS: 36415; 80178; 86038; 86039; 86430

== ENCOUNTER 2024-07-27 14:44 | Outpatient (CLI) | payer OTHER, SELFPAY ==
[2024-07-27] MEDS: SODIUM CHLORIDE 0.9% IV 1,000 ML 999 ML IVPB (15:23)
[2024-07-27 15:34] VITALS: BP 108/58; PULSE 78; RESP 18; TEMP 36.4; O2SAT 95; BMI 22.1
== END 2024-07-27 16:25 | disposition home or self-care (01) ==
PROVIDERS: PCP Family Medicine; Visit Provider Family Medicine
DX: E86.0 Dehydration (principal)
CPT/HCPCS: 96365; J7030

== ENCOUNTER 2024-07-31 11:16 | Emergency (ER) | payer OTHER, SELFPAY ==
[2024-07-31] VITALS (16 sets, daily range): BP systolic 116–134; BP diastolic 76–98; PULSE 66–100; RESP 15–20; TEMP 36.6; O2SAT 92–98
[2024-07-31] MEDS: FAMOTIDINE 20 MG/2 ML VIAL IV PUSH (11:47)
[2024-07-31] MEDS: PROCHLORPERAZINE EDISYLATE 10 MG/2 ML VIAL IV PUSH (11:47)
[2024-07-31 11:56] LABS: Basophils Absolute Auto 0.1 K/mm3 (0.0-0.1); Basophils Percent Auto 0.8 % (0.2-1.2); Eosinophils Absolute Auto 0.1 K/mm3 (0-0.3); Eosinophils Percent Auto 1.3 % (0-4.4); Hematocrit 42.9 % (37.0-47.0); Hemoglobin 14.3 g/dL (12.0-15.0); Immature Granulocyte Absolute 0.02 K/mm3 (0.00-0.031); Immature Granulocyte Percent A 0.2 % (0-0.5); Lymphocytes Absolute Auto 1.77 K/mm3 (0.9-3.2); Lymphocytes Percent Auto 21.2 % (18.3-44.2); Mean Corpuscular HGB Conc 33.3 g/dl (32-36); Mean Corpuscular Hemoglobin 34.3 pg (26-34); Mean Corpuscular Volume 102.9 fl (80-100); Mean Platelet Volume 9.3 fl (7.4-10.4); Monocytes Absolute Auto 0.5 K/mm3 (0.1-0.6); Monocytes Percent Auto 5.8 % (2.6-8.5); Neutrophils Absolute Auto 5.9 K/mm3 (1.3-6.7); Neutrophils Percent Auto 70.7 % (45.5-73.1); Platelet Count Result 338 k/mm3 (150-375); Red Blood Count 4.17 M/mm3 (4.2-5.4); Red Cell Distribution Width 11.9 % (11.5-14.5); White Blood Count 8.3 K/mm3 (4.5-10.0)
[2024-07-31 12:07] LABS: Alanine Aminotransferase 24 U/L (6-35); Albumin Level 3.8 g/dL (3.5-5.1); Alkaline Phosphatase 124 U/L (38-126); Anion Gap 8 mmol/L (4-12); Aspartate Amino Transferase 20 U/L (14-36); Bilirubin,Total 0.9 mg/dL (0.2-1.3); Blood Urea Nitrogen 9 mg/dL (7-17); Calcium 9.6 mg/dL (8.4-10.2); Carbon Dioxide 29 mmol/L (22-30); Chloride 102 mmol/L (98-107); Estimated CRCL calculation 84 ml/min; Estimated Glomerular Filt Rate > 60; Glucose 154 mg/dL (65-110); Lipase 107 U/L (23-300); Potassium 3.2 mmol/L (3.4-5.0); Sodium 139 mmol/L (137-145)
[2024-07-31] MEDS: LORazepam INJ (*CRX) 2 MG/ML VIAL 0.5 MG IV PUSH (12:11)
[2024-07-31] MEDS: HALOPERIDOL LACTATE 5 MG/ML VIAL 2.5 MG IM (12:14)
--- NOTE | 2024-07-31 12:38 | ED.GENADULT ---
HPI - General Adult General Chief complaint: Unspecified Stated complaint: SICK FOR UNABOUT A MONTH Time Seen by Provider: 07/31/24 11:37 History of Present Illness HPI narrative: Patient presents with 6 months of chronic abdominal pain/nausea/vomiting, 15 years of restless leg syndrome, sent here by her doctor because her symptoms are intolerable. Related Data Home Medications Medication Instructions Recorded Confirmed albuterol sulfate 90 mcg/actuation 2 puff inhalation TID PRN 07/09/20 07/31/24 aerosol inhaler Shortness Of Breath lithium carbonate 300 mg 300 mg PO QAM AND QHS 12/29/23 07/31/24 tablet,extended release escitalopram oxalate 10 mg tablet 10 mg PO DAILY 02/27/24 07/31/24 trazodone 50 mg tablet 50 mg PO QHS PRN Insomnia 02/27/24 07/31/24 budesonide-formoterol HFA 160 2 puff inhalation BID 03/20/24 07/31/24 mcg-4.5 mcg/actuation aerosol inhaler (Symbicort) diclofenac sodium 1 % topical gel 2 g topical QID 03/20/24 07/31/24 gabapentin 300 mg capsule 600 mg PO TID 03/20/24 07/31/24 buspirone 5 mg tablet 5 mg PO TID 07/31/24 07/31/24 Allergies Allergy/AdvReac Type Severity Reaction Status Date / Time Penicillins Allergy Intermediate Rash Verified 07/31/24 09:56 Sulfa (Sulfonamide Allergy Intermediate Hives Verified 07/31/24 09:56 Antibiotics) Review of Systems Review of Systems: All systems reviewed & are unremarkable except as noted in HPI and below PMFSH Past Medical History Medical History Asthma Bipolar 1 disorder Chronic GERD Chronic joint pain COPD (chronic obstructive pulmonary disease) (Unknown) COPD exacerbation Degenerative joint disease (DJD) of hip Depression Diarrhea Gastritis IBS (irritable colon syndrome) Left hip pain Left sided sciatica Low back pain Nausea Nicotine addiction Oral candidiasis Plantar wart, right foot Right shoulder pain Sore throat Transaminitis Tremor UTI (urinary tract infection), uncomplicated Viral upper respiratory illness Surgical History Surgical History Hx laparoscopic cholecystectomy Family History Family History Father Hypertension Mother Cancer Sibling Rheumatoid arthritis Grandparent Rheumatoid arthritis Social History Social History Smoking packs per day: 1 Smoking cigarettes per day: 20.0 Years smoked: 40 Smoking pack-years: 40.00 Smoking status: Current every day smoker Tobacco type: cigarettes Alcohol intake: never Substance use: never Substance use type: does not use Do You Feel Safe in your Home?: Yes Lack of Transportation: No Lack of Food: Sometimes True Current Housing: I Have Housing Concerned About Future Housing: No Difficulty Paying Gas/Electric Bills: No Difficulty Paying for Meds: No Currently Unemployed: No Education: Trade/Vocational Certificate Difficulty w/ Childcare or Family Care: No Living arrangements: with family Occupation/Education: unemployed Spiritual care concerns: No Exam Narrative: EXAMINATION OF ORGAN SYSTEMS/BODY AREAS: Constitutional: Vital signs per nursing GENERAL: Appears sad HEAD: Normal with no signs of head trauma. EYES: EOMI, conjunctiva normal ENT: Hearing grossly intact LUNGS: Nonlabored breathing. HEART: [Regular rate and rhythm] ABD: [Soft], [nontender to palpation] EXT: Normal range of motion SKIN: [No rashes or lesions.] NEURO: [Alert and oriented x 3. No gross focal sensory or strength deficits.] PSYCH: Normal affect Course Vital Signs Vital signs: Vital Signs Temperature 98 F 07/31/24 11:21 Pulse Rate 86 07/31/24 11:21 Respiratory Rate 19 07/31/24 11:21 Blood Pressure 129/87 07/31/24 11:21 Pulse Oximetry 97 07/31/24 11:21 Oxygen Delivery Room Air
[2024-07-31] MEDS: PRAMIPEXOLE 0.5 MG TABLET PO ×2 (13:33→15:04)
--- NOTE | 2024-07-31 14:16 | PC.NURSE ---
Family member up to nurses station stating that pt's legs are going a mile a minute and she needs medications.
[2024-07-31] MEDS: POTASSIUM CHLORIDE 20 MEQ PACKET (FOR LIQUID) 40 MEQ PO (14:24)
--- NOTE | 2024-07-31 15:20 | PC.NURSE ---
Patient given food and water per order from provider for PO challenge. patient states she wants to sign the paperwork to sign out because she is not being admitted . this RN informed patient that she is not up for discharge at this time and she was asked if she was asking to sign the AMA papers. patient was not sure and asked to speak with provider and asked how long it would be until she can speak with provider. I informed patient I was not sure because she was busy with another patient at this time. patient opened the sandwich she was given and states this smells like shit , but proceeded to eat the sandwich. provider aware.
== END 2024-07-31 16:20 | disposition home or self-care (01) ==
PROVIDERS: Emergency Provider Emergency Medicine; PCP Family Medicine
DX: R11.2 Nausea with vomiting, unspecified (principal); G25.81 Restless legs syndrome; J44.9 Chronic obstructive pulmonary disease, unspecified; K21.9 Gastro-esophageal reflux disease without esophagitis; K58.9 Irritable bowel syndrome, unspecified; F31.9 Bipolar disorder, unspecified; F17.210 Nicotine dependence, cigarettes, uncomplicated; Z87.440 Personal history of urinary (tract) infections; Z90.49 Acquired absence of other specified parts of digestive tract; Z79.899 Other long term (current) drug therapy
CPT/HCPCS: 36415; 80053; 83690; 85025; 96372; 96374; 96375; 99284; A9270; J0780; J1200; J1630; J2060

== ENCOUNTER 2024-08-14 00:51 | Day surgery (SDC) | payer OTHER, SELFPAY ==
[2024-08-03 15:09] VITALS: BMI 22.2
[2024-08-14 06:55] VITALS: BP 127/88; PULSE 82; RESP 18; TEMP 36.2; O2SAT 97
--- NOTE | 2024-08-14 07:05 | P.PNAN_ITS ---
Anes - Initial Pre Proc Eval Procedure: Operation Date: 08/14/24 08:00 Proposed Procedures p Esophagogastroduodenoscopy & Colonoscopy - Issac Martinez MD Date/Time: 08/14/24 07:05 Surgeon: Issac Martinez MD Pre Op Diagnosis: noninfective gastroenteriti/colitis, gastritis, Patient Data Age: 63 Gender: F Height: 1.68 m Weight: 67 kg Last Vital Signs Temp 36.2 C L 08/14/24 06:55 Pulse 82 08/14/24 06:55 Resp 18 08/14/24 06:55 BP 127/88 08/14/24 06:55 Pulse Ox 97 08/14/24 06:55 O2 Del Method Room Air 08/14/24 06:55 Allergies Allergy/AdvReac Type Severity Reaction Status Date / Time Penicillins Allergy Intermediate Rash Verified 08/14/24 06:50 Sulfa (Sulfonamide Allergy Intermediate Hives Verified 08/14/24 06:50 Antibiotics) Home Medications Medication Instructions Recorded Confirmed Type albuterol sulfate 90 mcg/actuation 2 puff inhalation TID PRN 07/09/20 08/14/24 History aerosol inhaler Shortness Of Breath ipratropium 0.5 mg-albuterol 3 mg 3 ml inhalation Q6-8H PRN 07/02/21 08/14/24 Rx (2.5 mg base)/3 mL nebulization shortness of breath or wheezing soln #180 mL lithium carbonate 300 mg 300 mg PO QAM AND QHS 12/29/23 08/14/24 History tablet,extended release escitalopram oxalate 10 mg tablet 10 mg PO DAILY 02/27/24 08/03/24 History trazodone 50 mg tablet 50 mg PO QHS PRN Insomnia 02/27/24 08/14/24 History budesonide-formoterol HFA 160 2 puff inhalation BID 03/20/24 08/14/24 History mcg-4.5 mcg/actuation aerosol inhaler (Symbicort) diclofenac sodium 1 % topical gel 2 g topical QID 03/20/24 08/14/24 History gabapentin 300 mg capsule 600 mg PO TID 03/20/24 08/14/24 History acetaminophen 500 mg tablet See Rx Instructions .Route 06/27/24 08/14/24 Rx .COMPLEX #90 tabs nicotine See Rx Instructions transdermal 07/05/24 08/14/24 Rx 21mg/24hr-14mg/24hr-7mg/24hr daily .COMPLEX #56 patches transderm patches,sequentl diphenoxylate-atropine 2.5 1 tablet PO TID PRN diarrhea #60 07/10/24 08/03/24 Rx mg-0.025 mg tablet (Lomotil) tabs aluminum-mag hydroxide-simethicone 10 ml PO QID PRN dyspepsia #300 mL 07/31/24 08/14/24 Rx 200 mg-200 mg-20 mg/5 mL oral susp (Maalox Advanced) buspirone 5 mg tablet 5 mg PO TID 07/31/24 08/14/24 History dicyclomine 20 mg tablet 20 mg PO TID PRN abdominal pain 07/31/24 08/03/24 Rx #30 tabs famotidine 20 mg tablet 20 mg PO DAILY #30 tabs 07/31/24 08/14/24 Rx pantoprazole 20 mg tablet,delayed 20 mg PO HS 4 weeks #28 tabs 07/31/24 08/14/24 Rx release (Protonix) promethazine 25 mg rectal 25 mg RECTAL Q6H PRN nausea and 07/31/24 08/14/24 Rx suppository vomiting #12 ea ondansetron 4 mg disintegrating See Rx Instructions .Route 08/06/24 08/14/24 Rx tablet .COMPLEX #20 tabs pramipexole 0.75 mg tablet See Rx Instructions .Route 08/06/24 08/14/24 Rx .COMPLEX #60 tabs Patient hx anesthesia problems: none Family hx anesthesia problems: none Results Review: All pre-operative results and documents have been reviewed as part of the pre- operative evaluation. [facility] Past Medical History Medical History Asthma Bipolar 1 disorder Chronic GERD Chronic joint pain COPD (chronic obstructive pulmonary disease) (Unknown) COPD exacerbation Degenerative joint disease (DJD) of hip Depression Diarrhea Gastritis IBS (irritable colon syndrome) Left hip pain Left sided sciatica Low back pain Nausea Nicotine addiction Oral candidiasis Plantar wart, right foot Right shoulder pain Sore throat Transaminitis Tremor UTI (urinary tract infection), uncomplicated Viral upper respiratory illness Surgical History Surgical History Hx laparoscopic cholecystectomy Family History Family History Father Hypertension Mother Cancer Sibling Rheumatoid arthritis Grandparent Rheumatoid arthritis Social History Social History Smoking packs per day: 1 Smoking cigarettes per day: 20.0 Years smoked: 40 Smoking pack-years: 40.00 Smoking status: Current every day smoker Tobacco type: cigarettes Alcohol intake: never Substance use: never Substance use type: does not use Do You Feel Safe in your Home?: Yes Lack of Transportation: No Lack of Food: Sometimes True Current Housing: I Have Housing Concerned About Future Housing: No Difficulty Paying Gas/Electric Bills: No Difficulty Paying for Meds: No Currently Unemployed: No Education: Trade/Vocational Certificate Difficulty w/ Childcare or Family Care: No Living arrangements: alone Occupation/Education: unemployed Spiritual care concerns: No Anes - Eval Final PreProcedure Day of Procedure 08/14/24 07:05 Patient weight: normal Heart: regular rate and rhythm Lungs: clear to auscultation and decreased breath sounds Airway: Mallampati scale class II Neurological: alert and oriented Last oral intake: >/= 8 hours ASA classification: III Emergent: no Anesthetic plan: proceed Anesthesia type and monitoring: general GIVS and standard monitoring Results Review: All pre-operative results and documents have been reviewed as part of the pre- operative evaluation. Informed Consent: The patient's anesthetic plan and its attendant risks and benefits were discussed with the patient/family/POA. Questions were solicited and answers provided to the satisfaction of the patient/family/POA.
[2024-08-14] MEDS: LACTATED RINGERS 1,000 ML 150 ML IV CONT (07:12)
--- NOTE | 2024-08-14 07:50 | PM.HPGS ---
History of Present Illness History of Present Illness Consent: Risks, benefits, and alternatives have been discussed and questions answered. Patient agrees to proceed with procedure. Chief complaint: noninfective gastroenteriti/colitis, gastritis, Narrative: Nadine Luna is a 63 year old female with chronic nausea, also diarrhea for years and recent weight loss. Recent ultrasound mild dilated bile duct but post seferino Review of Systems Review of Systems: All systems reviewed & are unremarkable except as noted in HPI and below PMFSH Past Medical History Medical History Asthma Bipolar 1 disorder Chronic GERD Chronic joint pain COPD (chronic obstructive pulmonary disease) (Unknown) COPD exacerbation Degenerative joint disease (DJD) of hip Depression Diarrhea Gastritis IBS (irritable colon syndrome) Left hip pain Left sided sciatica Low back pain Nausea Nicotine addiction Oral candidiasis Plantar wart, right foot Right shoulder pain Sore throat Transaminitis Tremor UTI (urinary tract infection), uncomplicated Viral upper respiratory illness Surgical History Surgical History Hx laparoscopic cholecystectomy Family History Family History Father Hypertension Mother Cancer Sibling Rheumatoid arthritis Grandparent Rheumatoid arthritis Social History Social History Smoking packs per day: 1 Smoking cigarettes per day: 20.0 Years smoked: 40 Smoking pack-years: 40.00 Smoking status: Current every day smoker Tobacco type: cigarettes Alcohol intake: never Substance use: never Substance use type: does not use Do You Feel Safe in your Home?: Yes Lack of Transportation: No Lack of Food: Sometimes True Current Housing: I Have Housing Concerned About Future Housing: No Difficulty Paying Gas/Electric Bills: No Difficulty Paying for Meds: No Currently Unemployed: No Education: Trade/Vocational Certificate Difficulty w/ Childcare or Family Care: No Living arrangements: alone Occupation/Education: unemployed Spiritual care concerns: No Meds Home Medications and Allergies Home Medications Medication Instructions Recorded Confirmed Type albuterol sulfate 90 mcg/actuation 2 puff inhalation TID PRN 07/09/20 08/14/24 History aerosol inhaler Shortness Of Breath ipratropium 0.5 mg-albuterol 3 mg 3 ml inhalation Q6-8H PRN 07/02/21 08/14/24 Rx (2.5 mg base)/3 mL nebulization shortness of breath or wheezing soln #180 mL lithium carbonate 300 mg 300 mg PO QAM AND QHS 12/29/23 08/14/24 History tablet,extended release escitalopram oxalate 10 mg tablet 10 mg PO DAILY 02/27/24 08/03/24 History trazodone 50 mg tablet 50 mg PO QHS PRN Insomnia 02/27/24 08/14/24 History budesonide-formoterol HFA 160 2 puff inhalation BID 03/20/24 08/14/24 History mcg-4.5 mcg/actuation aerosol inhaler (Symbicort) diclofenac sodium 1 % topical gel 2 g topical QID 03/20/24 08/14/24 History gabapentin 300 mg capsule 600 mg PO TID 03/20/24 08/14/24 History acetaminophen 500 mg tablet See Rx Instructions .Route 06/27/24 08/14/24 Rx .COMPLEX #90 tabs nicotine See Rx Instructions transdermal 07/05/24 08/14/24 Rx 21mg/24hr-14mg/24hr-7mg/24hr daily .COMPLEX #56 patches transderm patches,sequentl diphenoxylate-atropine 2.5 1 tablet PO TID PRN diarrhea #60 07/10/24 08/03/24 Rx mg-0.025 mg tablet (Lomotil) tabs aluminum-mag hydroxide-simethicone 10 ml PO QID PRN dyspepsia #300 mL 07/31/24 08/14/24 Rx 200 mg-200 mg-20 mg/5 mL oral susp (Maalox Advanced) buspirone 5 mg tablet 5 mg PO TID 07/31/24 08/14/24 History dicyclomine 20 mg tablet 20 mg PO TID PRN abdominal pain 07/31/24 08/03/24 Rx #30 tabs famotidine 20 mg tablet 20 mg PO DAILY #30 tabs 07/31/24 08/14/24 Rx pantoprazole 20 mg tablet,delayed 20 mg PO HS 4 weeks #28 tabs 07/31/24 08/14/24 Rx release (Protonix) promethazine 25 mg rectal 25 mg RECTAL Q6H PRN nausea and 07/31/24 08/14/24 Rx suppository vomiting #12 ea ondansetron 4 mg disintegrating See Rx Instructions .Route 08/06/24 08/14/24 Rx tablet .COMPLEX #20 tabs pramipexole 0.75 mg tablet See Rx Instructions .Route 08/06/24 08/14/24 Rx .COMPLEX #60 tabs Allergies Allergy/AdvReac Type Severity Reaction Status Date / Time Penicillins Allergy Intermediate Rash Verified 08/14/24 06:50 Sulfa (Sulfonamide Allergy Intermediate Hives Verified 08/14/24 06:50 Antibiotics) Vital Signs Vital Signs - 24 hr 08/14/24 06:55 Temperature 97.1 F L Pulse Rate 82 Respiratory Rate 18 Blood Pressure 127/88 Pulse Oximetry 97 Oxygen Delivery Room Air Exam Const: General: comfortable and no acute distress HENMT: Face/Nose/Sinus: Normal nares present Eyes: General: appearance normal, both eyes and all related structures Neck: Neck: no JVD Resp: Auscultation: clear to auscultation bilaterally Cardio: Rate: regular rate Rhythm: regular rhythm GI: Inspection: non-distended GI Palp: Yes Soft to palpation Skin: General skin exam: normal color Neuro: Speech: normal speech Other: uses walker Extrem: General: normal to inspection Psych: Mental Status: mental status grossly normal Assessment and Plan Assessment and plan (1) Weight loss: Code(s): R63.4 - Abnormal weight loss Status: Acute Assessment and Plan: egd and colonoscopy (2) Chronic nausea: Code(s): R11.0 - Nausea Status: Acute (3) Chronic diarrhea: Code(s): K52.9 - Noninfective gastroenteritis and colitis, unspecified Status: Acute
--- NOTE | 2024-08-14 08:09 | SUR.OPER ---
EGD: end 802, Colon: start 807
[2024-08-14 08:23] VITALS: BP 108/73; PULSE 76; RESP 22; O2SAT 100
[2024-08-14 08:33] VITALS: BP 124/82; PULSE 77; RESP 26; O2SAT 97
[2024-08-14 08:43] VITALS: BP 131/84; PULSE 72; RESP 24; O2SAT 99
== END 2024-08-14 08:58 | disposition home or self-care (01) ==
PROVIDERS: PCP Family Medicine; Visit Provider Internal Medicine Gastroenterology
PROC: 0DJ08ZZ Inspection of Upper Intestinal Tract, Via Natural or Artificial Opening Endoscopic (ICD-10-PCS; CPT 43235; principal; 2024-08-14 08:00)
DX: K22.70 Barrett's esophagus without dysplasia (principal); D12.2 Benign neoplasm of ascending colon; K57.30 Diverticulosis of large intestine without perforation or abscess without bleeding; F31.9 Bipolar disorder, unspecified; K21.9 Gastro-esophageal reflux disease without esophagitis; G89.29 Other chronic pain; M16.12 Unilateral primary osteoarthritis, left hip; J44.9 Chronic obstructive pulmonary disease, unspecified; R25.1 Tremor, unspecified; F17.210 Nicotine dependence, cigarettes, uncomplicated; Z79.51 Long term (current) use of inhaled steroids; Z98.890 Other specified postprocedural states; Z80.9 Family history of malignant neoplasm, unspecified
CPT/HCPCS: 43239; 45385; 45380; 88305; J2003; J2704; J7120

== ENCOUNTER 2024-10-09 11:39 | Outpatient (CLI) | payer OTHER, SELFPAY ==
[2024-10-09 12:48] LABS: Add Urine Microscopic? YES; Appearance Urine Clear (Clear); Bilirubin Urine Negative (Negative); Blood Urine Negative (Negative); Color Urine Light Yellow (Yellow); Glucose Urine UA Negative (Negative); Ketones Urine Negative (Negative); Leukocyte Esterase Ur Trace (Negative); Nitrate Urine Negative (Negative); Protein Urine Negative (Negative); Urobilinogen Urine 0.2 mg/dL (0.2-1.0)
[2024-10-09 12:59] LABS: Basophils Absolute Auto 0.06 K/mm3 (0.00-0.10); Basophils Percent Auto 0.7 % (0.0-1.0); Eosinophils Absolute Auto 0.41 K/mm3 (0.02-0.50); Eosinophils Percent Auto 4.6 % (1.0-6.0); Hematocrit 45.7 % (35.0-42.0); Hemoglobin 15.1 g/dL (11.7-13.8); Immature Granulocyte Absolute 0.03 K/mm3 (0.00-0.00); Immature Granulocyte Percent A 0.3 % (0.0-0.0); Lymphocytes Absolute Auto 2.77 K/mm3 (1.10-4.50); Mean Corpuscular Hemoglobin 33.3 pg (27.0-31.0); Mean Corpuscular Volume 100.7 fL (78.0-102.0); Mean Platelet Volume 9.7 fl (9.2-11.8); Monocytes Absolute Auto 0.56 K/mm3 (0.10-0.90); Monocytes Percent Auto 6.3 % (2.0-11.0); Neutrophils Percent Auto 57.1 % (50.0-70.0); Platelet Count Result 307 K/mm3 (150-420); Red Blood Count 4.54 M/mm3 (4.20-5.40); White Blood Count 8.9 K/mm3 (4.8-10.8)
[2024-10-09 13:26] LABS: Bacteria Urine Trace /hpf; RBC Urine None seen /hpf (0-2); Squamous Epithelial Cell Urine Few /hpf (Few); WBC Urine None seen /hpf (0-3)
[2024-10-09 13:42] LABS: Alanine Aminotransferase 14 U/L (14-59); Alkaline Phosphatase 133 U/L (46-116); Anion Gap 8 mmol/L (4-12); Aspartate Amino Transferase < 10 U/L (15-37); Bilirubin,Total 0.6 mg/dL (0.00-1.00); Blood Urea Nitrogen 10 mg/dL (7-18); Carbon Dioxide 31 mmol/L (21-32); Chloride 104 mmol/L (98-108); Estimated Glomerular Filt Rate > 60; Free T4 Free Thyroxine 1.08 ng/dL (0.76-1.46); Glucose 82 mg/dL (70-99); Osmolality Calculated 294 mOsm/kg (285-295); Potassium 4.4 mmol/L (3.5-5.1); Sodium 143 mmol/L (136-145); Thyroid Stimulating Hormone 0.66 uIU/mL (0.36-3.74); Total Protein 6.7 g/dL (6.4-8.2)
[2024-10-09 14:30] LABS: MALB Creatinine Ratio 37.4 mg/g (0-30); Microalbumin Urine Random 22.9 mg/L
[2024-10-12 11:08] LABS: Lithium 0.3 mmol/L (0.6-1.2)
== END 2024-10-09 11:40 | disposition home or self-care (01) ==
PROVIDERS: PCP Family Medicine
DX: R34 Anuria and oliguria (principal); Z79.899 Other long term (current) drug therapy
CPT/HCPCS: 36415; 80053; 80178; 81001; 82043; 84439; 84443; 85025

== ENCOUNTER 2024-10-23 11:00 | Outpatient (CLI) | payer OTHER, SELFPAY ==
--- NOTE | ~2024-10-23 | US_ITS ---
EXAMINATION: US retroperitoneal comp DATE: 10/23/2024 11:24 INDICATION: Anuria and oliguria. TECHNIQUE: Multiple ultrasound grayscale images of the kidneys were obtained. COMPARISON: None. FINDINGS: The right kidney measures 9.1 x 5.0 x 4.2 cm. The left kidney measures 9.0 x 4.3 x 4.0 cm. The kidney s demonstrate normal parenchymal echogenicity. There is no hydronephrosis. The bladder is normal. IMPRESSION: 1. Normal kidneys. No hydronephrosis. Reviewed, dictated and finalized at location A. R CUTTER
== END 2024-10-23 11:01 | disposition home or self-care (01) ==
LOC: CHSIMG 11:02
PROVIDERS: PCP Family Medicine; Visit Provider Family Medicine
DX: R34 Anuria and oliguria (principal)
CPT/HCPCS: 76770

== ENCOUNTER 2024-12-25 14:39 | Outpatient (CLI) | payer OTHER, SELFPAY ==
[2024-12-25 15:18] LABS: Basophils Absolute Auto 0.01 K/mm3 (0.00-0.10); Basophils Percent Auto 0.1 % (0.0-1.0); Eosinophils Absolute Auto 0.06 K/mm3 (0.02-0.50); Eosinophils Percent Auto 0.8 % (1.0-6.0); Immature Granulocyte Absolute 0.06 K/mm3 (0.00-0.00); Immature Granulocyte Percent A 0.8 % (0.0-0.0); Lymphocytes Absolute Auto 0.87 K/mm3 (1.10-4.50); Mean Corpuscular HGB Conc 32.6 g/dL (32-36); Mean Corpuscular Hemoglobin 32.7 pg (27.0-31.0); Mean Corpuscular Volume 100.5 fL (78.0-102.0); Mean Platelet Volume 9.4 fl (9.2-11.8); Monocytes Absolute Auto 0.34 K/mm3 (0.10-0.90); Monocytes Percent Auto 4.7 % (2.0-11.0); Neutrophils Absolute Auto 5.91 K/mm3 (1.70-7.20); Neutrophils Percent Auto 81.6 % (50.0-70.0); Platelet Count Result 404 K/mm3 (150-420); Red Blood Count 4.28 M/mm3 (4.20-5.40); Red Cell Distribution Width 12.2 % (11.6-14.4); White Blood Count 7.3 K/mm3 (4.8-10.8)
[2024-12-25 15:59] LABS: Alanine Aminotransferase 17 U/L (14-59); Albumin Level 3.5 g/dL (3.4-5.0); Alkaline Phosphatase 122 U/L (46-116); Anion Gap 9 mmol/L (4-12); Aspartate Amino Transferase 12 U/L (15-37); Bilirubin,Total 0.2 mg/dL (0.00-1.00); Blood Urea Nitrogen 14 mg/dL (7-18); Calcium 10.3 mg/dL (8.5-10.1); Carbon Dioxide 29 mmol/L (21-32); Chloride 105 mmol/L (98-108); Estimated Glomerular Filt Rate > 60; Glucose 142 mg/dL (70-99); NT Pro B Type Natriuretic Pept 162 pg/mL (0-125); Osmolality Calculated 298 mOsm/kg (285-295); Potassium 4.2 mmol/L (3.5-5.1); Sodium 143 mmol/L (136-145); Total Protein 6.7 g/dL (6.4-8.2)
--- OUTSIDE RECORDS SUMMARY | 2024-12-25 16:31 | XMS_ITS | Referral Summary ---
Author Organization [facility] [place] [address] Address [address] [place] [address] Care Team Providers Care Measurement Superintendent Name Role Phone CherallysonJasonh Primary Care Provider Encounters Date Type Department Care Team Description 12/04/2024 Telephone [facility] [address] [place] [address] for Advanced Medicine [address] [place] [address] Nena Blackwood MD Follow-up 11/15/2024 Telephone [facility] [address] [place] [address] for Advanced Medicine [address] [place] [address] Nena Blackwood MD Insurance Referrals 10/29/2024 2:14 PM PROGRAMMER ANALYST CONSULTANT - 10/29/2024 11:59 PM PROGRAMMER ANALYST CONSULTANT Hospital Encounter [facility] [address] [place] [address] for Advanced Medicine [address] [place] [address] Nena Blackwood MD Primary osteoarthritis of both shoulders (Primary Dx); Functional assessment declined; Decreased ambulation status; Lumbar radiculopathy Discharge Disposition: Discharge to home or self care 10/24/2024 Telephone [facility] [address] [place] [address] for [facility] Medicine [address] [place] [address] Nena Blackwood MD PMC Preprocedure 10/08/2024 Telephone [facility] [address] [place] [address] for Advanced Medicine [address] [place] [address] Nena Blackwood MD PMC Preprocedure from Last 3 Months Allergies Active Allergy Reactions Criticality Noted Date Comments Penicillins Unknown High 09/20/2019 Sulfa (Sulfonamide Antibiotics) Unknown 12/08 Medications lithium 300 mg capsule Take 1 tablet/capsule (300 mg total) by mouth 1 capsule in AM, 1 capsule in PM Active ipratropium-albute roL (DUO-NEB) 0.5-2.5 mg/3 mL nebulizer solution USE 1 VIAL IN NEBULIZER 3 TO 4 TIMES DAILY 08/18/20 23 Active albuterol (ProAir RespiClick) 90 mcg/actuation inhaler Inhale Active Symbicort 160-4.5 mcg/actuation inhaler INHALE 2 PUFFS TWO TIMES A DAY, RINSE MOUTH AFTER USE Active ondansetron ODT (ZOFRAN-ODT) 4 mg disintegrating tablet DISSOLVE 2 TABLET ON TONGUE EVERY 8 HOURS NEEDED FOR NAUSEA Active diphenoxylate-atro pine (LOMOTIL) 2.5-0.025 mg per tablet TAKE 1 TABLET BY MOUTH THREE TIMES A DAY NEEDED FOR DIARRHEA 08/01/20 23 Active acetaminophen (TYLENOL) 500 mg tablet TAKE 2 TABLETS BY MOUTH THREE TIMES A DAY, 6 HOURS APART 08/18/20 23 Active pramipexole (MIRAPEX) 0.75 mg tablet TAKE 2 TABLETS BY MOUTH NIGHTLY AT BEDTIME Active traZODone (DESYREL) 50 mg tablet 1 tablet (50 mg total) 02/16/20 24 Active walker miscIndications:Pr imary osteoarthritis of left hip,Primary osteoarthritis of both knees Use as directed. Please provide wheeled walker with seat 1 each 02/23/20 24 Active diclofenac sodium (VOLTAREN) 1 % gelIndications:Ost eoarthritis of the Knee Apply 2 g topically 4 (four) times a day 450 g 6 02/23/20 24 Active methocarbamoL (ROBAXIN) 500 mg tabletIndications: Primary osteoarthritis of left hip,Primary osteoarthritis of both knees Take 1 tablet (500 mg total) by mouth 3 (three) times a day 90 tablet 3 02/23/20 24 Active escitalopram (LEXAPRO) 10 mg tablet Take 1 tablet every day by oral route in the morning for 30 days, for depression/anxi ety. 04/02/20 24 Active dicyclomine (BENTYL) 20 mg tablet Active pantoprazole DR (PROTONIX) 20 mg EC tablet Active tiotropium bromide (Spiriva Respimat) 2.5 mcg/actuation inhaler INHALE 2 PUFFS DAILY, RINSE MOUTH AFTER USE 09/15/20 23 Active celecoxib (CeleBREX) 200 mg capsule Take 1 capsule (200 mg total) by mouth daily 30 capsule 1 09/14/20 24 Active Additional Information Patient not taking.Reported on 10/29/2024 promethazine (PHENERGAN) 25 mg tablet TAKE 1 TABLET BY MOUTH THREE TIMES A DAY As Needed for nausea and vomiting] 10/06/20 24 Active escitalopram (LEXAPRO) 20 mg tablet Take 1 tablet (20 mg total) by mouth daily 09/19/20 24 Active ALPRAZolam (XANAX) 0.5 mg tablet Take 1 tab 20 min prior to back injection procedure. Can repeat x1 if needed. 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 Never 10/29/2024 Q2: How many drinks containi ng alcohol do you have on a typical day when you are drinking? Patient does not drink Q3: How often do you have si x or more drinks on one occasion? Never 10/29/2024 Comments No Sex and Gender Information Value Date Recorded Sex Assigned at Not on file Legal Sex Female 6:50 PM PROGRAMMER ANALYST CONSULTANT Gender Identity Female 12/04/2024 1:14 PM PROGRAMMER ANALYST CONSULTANT Sexual Orientation Straight 12/04/2024 1: 14 PM PROGRAMMER ANALYST CONSULTANT Last Filed Vital Signs Vital Sign Reading Time Taken Comments Blood Pressure 98/69 10/29/2024 2:20 PM PROGRAMMER ANALYST CONSULTANT 75 Pulse 84 10/29/2024 2:20 PM PROGRAMMER ANALYST CONSULTANT Temperature 36.2 C (97.1 F) 10/29/2024 2:20 PM PROGRAMMER ANALYST CONSULTANT Respiratory Rate 8 10/29/2024 2:20 PM PROGRAMMER ANALYST CONSULTANT Oxygen Saturation 94% 10/29/2024 2:20 PM PROGRAMMER ANALYST CONSULTANT Inhaled Oxygen Concentration - - Weight 63.5 kg (140 lb) 10/29/2024 2:20 PM PROGRAMMER ANALYST CONSULTANT Height 170.2 cm (5' 7 ) 10/29/2024 2:20 PM PROGRAMMER ANALYST CONSULTANT Body Mass Index 21.93 10/29/2024 2:20 PM PROGRAMMER ANALYST CONSULTANT Plan of Treatment Not on file Goals Goal Patient Goal Type Associated Problems Recent Progress Patient-Stated? Author CCM Chronic Pain Care Plan Chronic Care Management Worsening( 2:36 PM PROGRAMMER ANALYST CONSULTANT) No Chris, Marisol Montenegro, RN Note: Problem: Chronic Pain Goals: 1. Minimize further functional decline 2. Maximize quality of life 3. Control pain Strategies: - Activity/exercise program recommendation - Conservative stepwise pain medicine strategy with multi-disciplinary approach - Recommend healthy lifestyle strategies and compensatory methods as needed Procedures Procedure Name Priority Date/Time Associated Diagnosis Comments PAIN MGMT IMAGING SHOULDER, HIP, KNEE JOINT/BURSA INJ BILATERAL Schedule Routine, Read Routine (OP Routine) 10/29/2024 4:07 PM PROGRAMMER ANALYST CONSULTANT Primary osteoarthritis of both shoulders from Last 3 Months Results * Imaging Shoulder, Hip, Knee Joint/Bursa INJ INJ Bilateral () (10/29/2024 4:07 PM PROGRAMMER ANALYST CONSULTANT) Narrative [facility] - 10/29/2024 4:07 PM PROGRAMMER ANALYST CONSULTANT The images from this study are not interpreted by Radiology. Please refer to the physician's procedure / OR operative note. us Nena Blackwood MD IMG PAIN MGMT PROCEDURES F inal Result [facility] from Last [address] [place] [address] [address] [address] [address] Care Teams Measurement Superintendent Relationship Specialty Start Date End Date Jason Treviño DO [facility] [place] [address] PCP - General Family Medicine 10/02/24
--- OUTSIDE RECORDS SUMMARY | 2024-12-25 16:31 | XMS_ITS | Clinical Summary ---
Author Organization [facility] [address] Address [address] [place] [address] Care Team Providers Care Chief Informatics Officer Name Role Phone CherJason valadez Primary Care Provider Allergies Active Allergy Reactions Criticality Noted Date [...] repeat x1 if needed. 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 01/10/2024 Encounters Date Type Department Care Team Description 12/04/2024 Telephone [facility] [address] [facility] [address] [place] [phone] Nena Blackwood MD Follow-up 11/15/2024 Telephone [facility] [address] [place] [address] Advanced Medicine [address] [place] [phone] Nena Blackwood MD Insurance Referrals 10/29/2024 2:14 PM FLUME TENDER - 10/29/2024 11:59 PM FLUME TENDER Hospital Encounter [facility] [address] [place] [address] Advanced Medicine [address] [place] [phone] Nena Blackwood MD Primary osteoarthritis of both shoulders (Primary Dx); Functional assessment declined; Decreased ambulation status; Lumbar radiculopathy Discharge Disposition: Discharge to home or self care 10/24/2024 Telephone [facility] [address] [place] [address] Advanced Medicine [address] [place] [address] Nena Blackwood MD PMC Preprocedure 10/08/2024 Telephone [facility] [address] [place] [address] Advanced Medicine [address] [place] [address] Nena Blackwood MD PMC Preprocedure from Last 3 Months Surgical History Surgery Date Site/Laterality Comments LAPAROSCOPIC CHOLECYSTECTOMY Medical History Medical History Date Comments Weight loss Poor appetite Wears glasses Drainage from nose Mouth sores Cough Shortness of breath Nausea Diarrhea Arthritis Muscle pain Occasional tremors Depression COPD (chronic obstructive pulmonary disease) (HC C) Anxiety Low back pain Family History Medical History Relation Name Comments Heart disease Father Hypertension Father Cancer Mother Multiple sclerosis Sister Thyroid disease Sister Relation Name Status Comments Father Mother Sister Social History Tobacco Use Types Packs/Day Years [...] on file Legal Sex Female 6:50 PM FLUME TENDER Gender Identity Female 12/04/2024 1:14 PM FLUME TENDER Sexual Orientation Straight 12/04/2024 1: 14 PM FLUME TENDER Obstetrics History Last Filed Vital Signs Vital Sign Reading Time Taken Comments Blood Pressure 98/69 10/29/2024 2:20 PM FLUME TENDER 75 Pulse 84 10/29/2024 2:20 PM FLUME TENDER Temperature 36.2 C (97.1 F) 10/29/2024 2:20 PM FLUME TENDER Respiratory Rate 8 10/29/2024 2:20 PM FLUME TENDER Oxygen Saturation 94% 10/29/2024 2:20 PM FLUME TENDER Inhaled Oxygen Concentration - - Weight 63.5 kg (140 lb) 10/29/2024 2:20 PM FLUME TENDER Height 170.2 cm (5' 7 ) 10/29/2024 2:20 PM FLUME TENDER Body Mass Index 21.93 10/29/2024 2:20 PM FLUME TENDER Plan of Treatment Health Maintenance Due Date Last Done Comments Colon Cancer Screening-Colonoscopy 1958 Depression Screening 1958 Fall Risk Assessment 1958 Hepatitis C Screening 1958 Osteoporosis Screening-Bone Density Scan 1958 DTaP/Tdap/Td Vaccine (1 - Tdap) 1969 Hepatitis B Screening 1976 Pneumococcal vaccine 65+ (1 of 2 - PCV) 1977 Zoster Vaccine (1 of 2) 2008 Breast Cancer Screening-Mammogram 09/16/2021 09/16/2020, 09/16/2020, 09/05/2019 Well Visit 65+ 2023 Covid-19 Vaccine ( season) 2024 09/22/2021, 01/24/2021, 12/27/2020 Influenza Vaccine (#1) 2024 09/04/2019, 2011 Goals Goal Patient Goal Type Associated Problems Recent Progress Patient-Stated? Author CCM Chronic Pain Care Plan Chronic Care Management Worsening( 2:36 PM FLUME TENDER) No Marisol Perez, RN Note: Problem: Chronic Pain Goals: 1. [...] Read Routine (OP Routine) 10/29/2024 4:07 PM FLUME TENDER Primary osteoarthritis of both shoulders from Last 3 Months Results * Imaging Shoulder, Hip, Knee Joint/Bursa INJ INJ Bilateral () (10/29/2024 4:07 PM FLUME TENDER) Narrative [facility] - 10/29/2024 4:07 PM FLUME TENDER The images from this study are not interpreted by Radiology. Please refer to the physician's procedure / OR operative note. us Nena Blackwood MD IMG PAIN MGMT PROCEDURES F inal Result [facility] from Last 3 Months [facility] [place] [place] [address] [facility] [employer] [place] [id number] [facility] [employer] [facility] Care Teams Chief Informatics Officer Relationship Specialty Start Date End Date Jason Treviño DO [address] [place] [address] PCP - General Family Medicine 10/02/24
--- OUTSIDE RECORDS SUMMARY | 2024-12-25 16:31 | XMS_ITS | Encounter Summary ---
Author Organization [facility] Healthcare Address [address] [place] [address] Care Team Providers Care Assembler Convertible Top Name Role Phone Jason Treviñorish Primary Care Provider Reason for Visit * Reason Onset Date Comments Follow-up 12/04/2024 Encounter Details Date Type Department Care Team (Late st Contact Info) Description 12/04/2024 Telephone [facility] [place] [facility] [address] [facility] [address] [place] [address] Nena Blackwood MD [address] [facility] [address] [facility] [id number] [place], [place] [id number] Follow-up Social History Tobacco Use Types Packs/Day Years Used Date Smoking Tobacco: Every Day Cigarettes AUDIT-C Answer Date Recorded Q1: How often [...] on file Legal Sex Female 6:50 PM PATIENT INSURANCE CLERK Gender Identity Female 12/04/2024 1:14 PM PATIENT INSURANCE CLERK Sexual Orientation Straight 12/04/2024 1: 14 PM PATIENT INSURANCE CLERK documented as of this encounter Miscellaneous Notes * Telephone Encounter - Vijaya Omer RN - 12/05/2024 9:30 AM PATIENT INSURANCE CLERK Nadine I am sorry but Dr Blackwood said it is better to get the motorized wheelchair or scooter from your PCP. Thanks ENT INSURANCE CLERK * Telephone Encounter - Nena Blackwood MD - 12/05/2024 8:07 AM PATIENT INSURANCE CLERK Recommend that she follow up with PCP for motorized wheelchair or scooter. ENT INSURANCE CLERK * Telephone Encounter - Sharlene Solomon RN - 12/04/2024 2:31 PM PATIENT INSURANCE CLERK Patient informed that she needs to complete PT before we can perform LESI. Patient rescheduled for LESI > 6 weeks out so she can complete PT. Patient requesting order for motorized wheelchair. ENT INSURANCE CLERK documented in this encounter Plan of Treatment Not on file documented as of this encounter Goals Goal Patient Goal Type Associated Problems Recent Progress Patient-Stated? Author CCM Chronic Pain Care Plan Chronic Care Management Worsening( 2:36 PM PATIENT INSURANCE CLERK) Marisol Hollis RN Note: Problem: Chronic Pain Goals: 1. Minimize further functional decline 2. Maximize quality of life 3. Control pain Strategies: - Activity/exercise program recommendation - Conservative stepwise pain medicine strategy with multi-disciplinary approach - Recommend healthy lifestyle strategies and compensatory methods as needed documented as of this encounter Visit Diagnoses Not on filedocumented in this encounter Care Teams Assembler Convertible Top Relationship Specialty Start Date End Date Jason Treviño DO [address] [place] [address] PCP - General Family Medicine 10/02/24 documented as of this encounter
--- OUTSIDE RECORDS SUMMARY | 2024-12-25 16:31 | XMS_ITS | Encounter Summary ---
Author Organization [facility] Healthcare Address [address] [place] [address] Care Team Providers Care Crude Oil Treater Name Role Phone Yaquelin Goodman NP Primary Care Provider [phone] Jason Treviño DO Primary Care Provider Reason for Visit * Reason Onset Date Comments PMC Preprocedure 03/23/2024 Encounter Details Date Type Department Care Team (Late st Contact Info) Description 03/23/2024 Telephone [facility] [place] [facility] [address] [facility] [address] [place], [place] [id number] Nena Blackwood MD [address] [facility] [id number] [place], [place] [id number] PMC Preprocedure Social History Tobacco Use Types Packs/Day Years Used Date Smoking Tobacco: Every Day Cigarettes AUDIT-C Answer Date Recorded Q1: How often do you have a drink containing alcohol? Never 02/23/2024 Q2: How many drinks containi ng alcohol do you have on a typical day when you are drinking? Patient does not drink Q3: How often do you have si x or more drinks on one occasion? Never 02/23/2024 Comments No Sex and Gender Information Value Date Recorded Sex Assigned at Not on file Legal Sex Female 6:50 PM GAME DEVELOPER Gender Identity Female 12/04/2024 1:14 PM GAME DEVELOPER Sexual Orientation Straight 12/04/2024 1: 14 PM GAME DEVELOPER documented as of this encounter Plan of Treatment Not on file documented as of this encounter Goals Goal Patient Goal Type Associated Problems Recent Progress Patient-Stated? Author CCM Chronic Pain Care Plan Chronic Care Management Worsening( 2:36 PM GAME DEVELOPER) Marisol Hollis RN Note: Problem: Chronic Pain Goals: 1. Minimize further functional decline 2. Maximize quality of life 3. Control pain Strategies: - Activity/exercise program recommendation - Conservative stepwise pain medicine strategy with multi-disciplinary approach - Recommend healthy lifestyle strategies and compensatory methods as needed documented as of this encounter Visit Diagnoses Not on filedocumented in this encounter Care Teams Crude Oil Treater Relationship Specialty Start Date End Date Yaquelin Goodman NP [address] [place] [address] PCP - General Nurse Practitioner 01/27/24 10/01/24 Jason Treviño DO [address] [place] [address] PCP - General Family Medicine 10/02/24 documented as of this encounter
--- OUTSIDE RECORDS SUMMARY | 2024-12-25 16:31 | XMS_ITS | Encounter Summary ---
Author Organization [facility] Healthcare Address [address] [place] [address] Care Team Providers Care Fruit Worker Name Role Phone Yaquelin Goodman NP Primary Care Provider [phone] Jason Treviño DO Primary Care Provider Encounter Details Date Type Department Care Team (Late st Contact Info) Description 04/20/2024 Telephone [facility] [place] [facility] [address] [facility] Advanced Medicine [address] [place], [place] [id number] Nena Blackwood MD [address] [facility] [address] [facility] [phone] [place], [place] [id number] Social History Tobacco Use Types Packs/Day Years Used Date Smoking Tobacco: Every Day Cigarettes AUDIT-C Answer Date Recorded Q1: How often do you have a drink containing alcohol? Never 04/24/2024 Q2: How many drinks containi ng alcohol do you have on a typical day when you are drinking? Patient does not drink Q3: How often do you have si x or more drinks on one occasion? Never 04/24/2024 Comments No Sex and Gender Information Value Date Recorded Sex Assigned at Not on file Legal Sex Female 6:50 PM WASH OPERATOR Gender Identity Female 12/04/2024 1:14 PM WASH OPERATOR Sexual Orientation Straight 12/04/2024 1: 14 PM WASH OPERATOR documented as of this encounter Plan of Treatment Not on file documented as of this encounter Goals Goal Patient Goal Type Associated Problems Recent Progress Patient-Stated? Author CCM Chronic Pain Care Plan Chronic Care Management Worsening( 2:36 PM WASH OPERATOR) Marisol Hollis, RN Note: Problem: Chronic Pain Goals: 1. Minimize further functional decline 2. Maximize quality of life 3. Control pain Strategies: - Activity/exercise program recommendation - Conservative stepwise pain medicine strategy with multi-disciplinary approach - Recommend healthy lifestyle strategies and compensatory methods as needed documented as of this encounter Visit Diagnoses Not on filedocumented in this encounter Care Teams Fruit Worker Relationship Specialty Start Date End Date Yaquelin Goodman NP [address] [place] [address] PCP - General Nurse Practitioner 01/27/24 10/01/24 Jason Treviño DO [address] [place] [address] PCP - General Family Medicine 10/02/24 documented as of this encounter
--- OUTSIDE RECORDS SUMMARY | 2024-12-25 16:31 | XMS_ITS | Encounter Summary ---
Author Organization [facility] Address [address] [place] [address] Care Team Providers Care Side Laster Staple Name Role Phone Shubham Flores MD Primary Care Provider Thierry Rivero MD Primary Care Provider Jason Treviño DO Primary Care Provider [phone] Encounter Details Date Type Department Care Team (Late st Contact Info) Description 03/17/2019 Abstract [facility] CONVERSION [address] [place] [address] , Generic ConversionMD Social History Tobacco Use Types Packs/Day Years Used Date Smoking Tobacco: Never Assessed Comments Unknown Sex and Gender Information Value Date Recorded Sex Assigned at Female 2024 10:40 AM STEEL ROD BUSTER Legal Sex Female 6:57 PM CDT Gender Identity Female 12/19/2019 1:31 PM CDT Sexual Orientation Not on file documented as of this encounter Plan of Treatment Not on file documented as of this encounter Visit Diagnoses Not on filedocumented in this encounter Additional Health Concerns Infection Onset Date Last Indicated Resolved Time COVID-19 Rule Out 07/12/2024 07/12/2024 07/12/2024 6:41 PM CDT documented as of this encounter Care Teams Side Laster Staple Relationship Specialty Start Date End Date Shubham Flores MD [address] [place] [phone] PCP - General FAMILY PRACTICE 05/07/19 07/06/20 Thierry Rivero MD [address] [place] [address] PCP - General FAMILY PRACTICE 07/07/20 06/14/24 Jason Treviño DO [address] [place] [address] PCP - General FAMILY PRACTICE 06/15/24 documented as of this encounter
--- OUTSIDE RECORDS SUMMARY | 2024-12-25 16:31 | XMS_ITS | Encounter Summary ---
Author Organization [facility] Healthcare Address [address] [place] [address] Care Team Providers Care Heel Washer Stringing Machine Operator Name Role Phone Yaquelin Goodman NP Primary Care Provider [phone] Jason Treviño DO Primary Care Provider Reason for Visit * Reason Onset Date Comments PA 02/28/2024 Encounter Details Date Type Department Care Team (Late st Contact Info) Description 02/28/2024 Telephone [facility] [place] [facility] [address] [facility] Advanced Medicine [address] [place], [place] [id number] Nena Blackwood MD [address] [facility] [address] [facility] [phone] [place], [place] [id number] PA Social History Tobacco Use Types Packs/Day Years [...] on file Legal Sex Female 6:50 PM STRETCHING MACHINE OPERATOR Gender Identity Female 12/04/2024 1:14 PM STRETCHING MACHINE OPERATOR Sexual Orientation Straight 12/04/2024 1: 14 PM STRETCHING MACHINE OPERATOR documented as of this encounter Plan of Treatment Not on file documented as of this encounter Goals Goal Patient Goal Type Associated Problems Recent Progress Patient-Stated? Author CCM Chronic Pain Care Plan Chronic Care Management Worsening( 2:36 PM STRETCHING MACHINE OPERATOR) Marisol Hollis RN Note: Problem: Chronic Pain Goals: 1. Minimize further functional decline 2. Maximize quality of life 3. Control pain Strategies: - Activity/exercise program recommendation - Conservative stepwise pain medicine strategy with multi-disciplinary approach - Recommend healthy lifestyle strategies and compensatory methods as needed documented as of this encounter Visit Diagnoses Not on filedocumented in this encounter Care Teams Heel Washer Stringing Machine Operator Relationship Specialty Start Date End Date Yaquelin Goodman NP [address] [place] [address] PCP - General Nurse Practitioner 01/27/24 10/01/24 Jason Treviño DO [address] [place] [address] PCP - General Family Medicine 10/02/24 documented as of this encounter
--- OUTSIDE RECORDS SUMMARY | 2024-12-25 16:31 | XMS_ITS | Clinical Summary ---
Author Organization [facility] Address [facility] [place] [address] Care Team Providers Care Clinical Account Specialist Name Role Phone Jason Treviño DO Primary Care Provider [phone] Allergies Active Allergy Reactions Criticality Noted Date Comments Penicillins Unknown High 09/20/2019 Sulfa Antibiotics Unknown 12/19/2019 Medications albuterol (2.5 MG/3ML) 0.083% nebulizer solution USE 1 VIAL PER NEBULIZER EVERY 4 TO 6 HOURS NEEDED 0 09/14/20 19 Active doxepin 25 MG capsule TAKE 1 CAPSULE BY MOUTH NIGHTLY AT BEDTIME NEEDED 1 09/10/20 19 Active lithium 300 MG capsule 1 capsule (300 mg total) 3 (three) times daily with meals. 3 08/23/20 19 Active Pramipexole Dihydrochloride 0.75 MG Tab Take 2 tablets by mouth nightly at bedtime. 0 09/10/20 19 Active escitalopram 20 MG tablet Take 1 tablet (20 mg total) by mouth daily. 2 08/23/20 19 Active omeprazole 20 MG capsule Take 20 mg by mouth daily. Active budesonide-formoter ol 160-4.5 MCG/ACT inhaler Inhale 2 puffs into the lungs 2 (two) times daily. Active Albuterol Sulfate (PROAIR RESPICLICK) 108 (90 Base) MCG/ACT AEROSOL POWDER, BREATH ACTIVATED Active VENTOLIN HFA 108 (90 Base) MCG/ACT inhaler INHALE ONE PUFF EVERY 4 HOURS NEEDED 06/21/20 20 Active ondansetron 4 MG disintegrating tablet Take 2 tablets (8 mg total) by mouth every 8 (eight) hours as needed for Nausea. 20 tablet 2 07/24/20 20 Active traZODone (DESYREL) 50 MG tablet Take 1 tablet (50 mg total) by mouth nightly at bedtime. Active buPROPion XL (WELLBUTRIN XL) 150 MG 24 hr tablet Take 1 tablet every day by oral route in the morning for 30 days, for depression and smoking cessation. Active methocarbamol (ROBAXIN) 500 MG tablet Take 1 tablet (500 mg total) by mouth 3 (three) times daily. Active gabapentin (NEURONTIN) 300 MG capsule Take 2 capsules (600 mg total) by mouth 3 (three) times daily. 05/10/20 24 Active ACETAMINOPHEN EXTRA STRENGTH 500 MG tablet Take 1 tablet (500 mg total) by mouth every 6 (six) hours as needed. Active busPIRone (BUSPAR) 10 MG tablet Take 1 tablet (10 mg total) by mouth 2 (two) times daily. 05/30/20 24 Active diphenoxylate-atrop ine (LOMOTIL) 2.5-0.025 MG tablet TAKE 1 tablet BY MOUTH three times a day As Needed for diarrhea Active SPIRIVA RESPIMAT 2.5 MCG/ACT inhaler (SPIRIVA RESPIMAT) INHALE 2 PUFFS DAILY, RINSE MOUTH AFTER USE 09/15/20 23 Active Active Problems Problem Noted Date Diagnosed Date Headache 12/20/2019 Acute on chronic respiratory failure with hypoxia ([facility]) 12/20/2019 Acute exacerbation of chroni c obstructive pulmonary disease (COPD) ([facility]) 12/19/2019 Leukocytosis 12/19/2019 Depression Encounters Date Type Department Care Team Description 2024 10:40 AM ARCHITECTURAL PROJECT CAPTAIN - 2024 11:59 PM [facility] Hospital Encounter [facility] [place] [address] Jason Treviño DO Discharge Disposition: Home or Self Care (Routine Discharge) [address] [facility] [place] [address] Jason Trveiño DO 2024 Travel 10/19/2024 1:33 PM ARCHITECTURAL PROJECT CAPTAIN - 10/19/2024 11:59 PM [facility] Hospital Encounter [facility] [place] [address] Jason Treviño DO Discharge Disposition: Home or Self Care (Routine Discharge) 10/19/[address] [place] [address] Jason Treviño DO 10/19/2024 Travel from Last 3 Months Family History Medical History Relation Comments Heart Disease Father Hypertension Father Cancer Mother Heart Disease Mother Hypertension Mother Relation Status Comments Father Mother Social History Tobacco Use Types Packs/Day Years Used Date Smoking Tobacco: Every Day Cigarettes 1.5 31.2 Started: 2023 Smokeless Tobacco: Never Tobacco Cessation:Ready to Q uit: Not Asked; Counseling Given: Not Answered Alcohol Use Standard Drinks/Week Comments No 0 (1 standard drink = 0.6 oz pur e alcohol) AUDIT-C Answer Date Recorded Frequency of Alcohol Consumption Never 10/04/2019 Average Number of Drinks Not on file 019 Frequency of Binge Drinking Not on file 09/10 Comments No Sex and Gender Information Value Date Recorded Sex Assigned at Female 2024 10:40 AM ARCHITECTURAL PROJECT CAPTAIN Legal Sex Female 6:57 PM CDT Gender Identity Female 12/19/2019 1:31 PM CDT Sexual Orientation Not on file Last Filed Vital Signs Vital Sign Reading Time Taken Comments Blood Pressure 152/96 07/30/2024 5:03 AM CDT Pulse 67 07/30/2024 5:03 AM CDT Temperature 36.2 C (97.2 F) 07/30/2024 5:03 AM CDT Respiratory Rate 16 07/30/2024 5:03 AM CDT Oxygen Saturation 91% 07/30/2024 5:03 AM CDT Inhaled Oxygen Concentration - - Weight 66.7 kg (147 lb 0.8 oz) 07/30/2024 5:57 A M CDT Height 167.6 cm (5' 6 ) 07/30/2024 5:57 AM CDT Body Mass Index 23.73 07/30/2024 5:57 AM CDT Plan of Treatment Health Maintenance Due Date Last Done Comments Colorectal Cancer Screening Colonoscopy (10 Years) 1958 Pneumococcal Vaccine: 65+ Years (1 of 2 - PCV) 1964 Hepatitis C 1976 DTaP, Tdap and Td Vaccines ( 1 - Tdap) 1977 Zoster Vaccines (1 of 2) 2008 RSV Immunization or 60+ Years (1 - Risk 60-74 years 1-dose series) 2018 Lung Cancer Screening 07/07/2021 07/07/2020 , 06/29/2019 Mammogram Screening 09/16/2022 09/16/2020, 09/05/2019 Dexa Scan (General) 2023 COVID-19 Vaccine (1 - 2023-2 5 season) 2024 Influenza Adult (#1) 2024 Meningococcal B Vaccine Aged Out No l onger eligible based on patient's age to complete this topic Meningococcal Vaccine Aged Out No sulema florecita eligible based on patient's age to complete this topic RSV Immunizations Under 20 Months Aged Out No longer eligible b ased on patient's age to complete this topic Procedures Procedure Name Priority Date/Time Associated Diagnosis Comments URINE BACTERIA CULTURE Routine 2024 10:55 AM ARCHITECTURAL PROJECT CAPTAIN Dysuria HC URINALYSIS AUTO W/MICRO Routine 10/19/2024 1:50 PM ARCHITECTURAL PROJECT CAPTAIN Dysuria MG SCREENING W GIAN ADELE DIGI Routine 09/16/2020 11:46 AM ARCHITECTURAL PROJECT CAPTAIN Visit for screening mammogram CT LUNG SCREENING Routine 07/07/2020 12: 55 PM CDT Smoking greater than 30 pack years from Last 3 Months or Most Recently Relevant to Health Maintenance Results * URINE BACTERIA CULTURE (2024 10:55 AM ARCHITECTURAL PROJECT CAPTAIN) SPEC DESCRIPTION URINE CLEAN CATCH 2024 11:02 AM ARCHITECTURAL PROJECT CAPTAIN [facility] SPECIAL REQUESTS NO SPECIAL REQUEST 2024 11:02 AM ARCHITECTURAL PROJECT CAPTAIN [facility] CULTURE RESULT EQUAL OR >100,000 CFU/mL ESCHERICHIA COLI 11/25/2024 7:41 AM ARCHITECTURAL PROJECT CAPTAIN [facility] URINE SPECIMEN OBTAINED BY CLEAN CATCH PROCEDURE / Unknown 2024 10:55 AM ARCHITECTURAL PROJECT CAPTAIN 2024 11:00 AM ARCHITECTURAL PROJECT CAPTAIN Narrative Organism Antibiotic Method Susceptibility Escherichia coli AMPICILLIN DANAE (VITEK) Sensitive Escherichia coli AMOXICILLIN/CLAVULANIC A DANAE (VITEK) Sensitive Escherichia coli AZTREONAM DANAE (VITEK) Sensitive Escherichia coli CEFEPIME DANAE (VITEK) Sensitive Escherichia coli CEFTRIAXONE DANAE (VITEK) Sensitive Escherichia coli CEFAZOLIN DANAE (VITEK) Sensitive Escherichia coli CIPROFLOXACIN DANAE (VITEK) Resistant Escherichia coli ESBL DANAE (VITEK) NEG: Sensitive Escherichia coli ERTAPENEM DANAE (VITEK) Sensitive Escherichia coli NITROFURANTOIN DANAE (VITEK) Sensitive Escherichia coli GENTAMICIN DANAE (VITEK) Sensitive Escherichia coli IMIPENEM DANAE (VITEK) Sensitive Escherichia coli LEVOFLOXACIN DANAE (VITEK) Resistant Escherichia coli MEROPENEM DANAE (VITEK) Sensitive Escherichia coli PIPRACIL/TAZO DANAE (VITEK) Sensitive Escherichia coli TRIMETH-SULFAMETH. DANAE (VITEK) Resistant Escherichia coli TETRACYCLINE DANAE (VITEK) Resistant Jason Treviño DO MICROBIOLOGY - GENERAL ORDERAB LES Final Result Performing Organization Address City/State/[facility] Co de Phone Number [facility] [address] [place] [address], [id number] [facility] [address] [place] [address], * URINALYSIS (10/19/2024 1:50 PM ARCHITECTURAL PROJECT CAPTAIN) COLOR (U) YELLOW 10/19/2024 2:23 PM [facility] TRANSPARENCY CLEAR 10/19/2024 2:23 PM [facility] SPECIFIC GRAVITY (U) 1.015 1.000 - 1.025 10/19/2024 2:23 PM [facility] U PH 7.0 5.0 - 8.0 10/19/2024 2:23 PM [facility] LEUKOCYTES (U) NEGATIVE NEGATIVE 10/19/2024 2:23 PM [facility] NITRITES NEGATIVE NEGATIVE 10/19/2024 2:23 PM [facility] PROTEIN RANDOM (U) NEGATIVE NEGATIVE 10/19/2024 2:23 PM [facility] GLUCOSE (U) NEGATIVE NEGATIVE 10/19/2024 2:23 PM ARCHITECTURAL PROJECT CAPTAIN [facility] KETONES MG/DL (U) NEGATIVE NEGATIVE 10/19/2024 2:23 PM ARCHITECTURAL PROJECT CAPTAIN [facility] UROBILINOGEN 0.2 <1.0 EU/DL 10/19/2024 2:23 PM ARCHITECTURAL PROJECT CAPTAIN [facility] BILIRUBIN (U) NEGATIVE NEGATIVE 10/19/2024 2:23 PM ARCHITECTURAL PROJECT CAPTAIN [facility] BLOOD (U) NEGATIVE NEGATIVE 10/19/2024 2:23 PM ARCHITECTURAL PROJECT CAPTAIN [facility] WBC/HPF 0-5 0 - 5 /HPF 10/19/2024 2:23 PM ARCHITECTURAL PROJECT CAPTAIN [facility] RBC/HPF 0-5 0 - 5 /HPF 10/19/2024 2:23 PM ARCHITECTURAL PROJECT CAPTAIN [facility] EPI/LPF RARE /LPF 10/19/2024 2:23 PM ARCHITECTURAL PROJECT CAPTAIN [facility] BACTERIA (U) 1+ /HPF 10/19/2024 2:23 PM ARCHITECTURAL PROJECT CAPTAIN [facility] MUCUS PRESENT 10/19/2024 2:23 PM ARCHITECTURAL PROJECT CAPTAIN [facility] URINE SPECIMEN OBTAINED BY CLEAN CATCH PROCEDURE / Unknown 10/19/2024 1:50 PM ARCHITECTURAL PROJECT CAPTAIN Jason Treviño DO URINE ORDERABLES Final Result [facility] [address] [place] [address], * MG SCREENING W GIAN ADELE DIGI (09/16/2020 11:46 AM ARCHITECTURAL PROJECT CAPTAIN) Anatomical Region Laterality Modality Breast Bilateral Mammography 09/17/2020 8:22 AM ARCHITECTURAL PROJECT CAPTAIN Impressions 09/17/2020 8:23 AM ARCHITECTURAL PROJECT CAPTAIN IMPRESSION: No suspicious change since the previous exams. Recommendation: 1: Routine screening mammogram Bilateral in 1 Year Assessment: ACR BI-RADS Category 2 - Benign. Interpreted By: Omer Garner MD, 09/17/2020 8:22 AM Narrative 09/17/2020 8:23 AM ARCHITECTURAL PROJECT CAPTAIN Examination: Digital screening mammogram with CAD. Clinical history: Asymptomatic patient presents for routine screening. Comparison: 09/05/2019, 08/08/2018, 08/03/2017, 11/14/2015. Technique: Bilateral digital mammograms. The exam was interpreted with the use of a computer-aided detection (CAD) system. Additional 3-D tomosynthesis images were acquired. Tissue density: The breast tissue is almost entirely composed of fat. Findings: The breast tissue is almost entirely composed of fat, with some minimal fibroglandular tissue present. Benign-appearing calcification noted. No suspicious mass, microcalcification or area of architectural distortion can be identified. From a mammographic standpoint, routine followup in one year would seem adequate. us Thierry Rivero MD MAMMO Final Result * CT LUNG SCREENING (07/07/2020 12:55 PM CDT) Anatomical Region Laterality Modality Chest Computed Tomogra phy 07/08/2020 4:27 PM CDT Narrative 07/08/2020 4:44 PM CDT EXAM: LUNG SCREENING LOW-DOSE CT THORAX WITHOUT CONTRAST DATE: 07/07/2020 HISTORY: Asymptomatic patient with history of smoking meeting CMS high-risk criteria for lung screening. * 59 years * 40 pack years * Current smoker COMPARISON: 06/29/2019 TECHNIQUE: Noncontrast, helical, low-dose CT (LDCT) chest per standard departmental protocol. A dose lowering technique was used for this procedure, which may include, but is not limited to, dose reduction technique, automated exposure control, the use of iterative reconstruction, and ALARA (As Low As Reasonably Achievable) / Image Gently techniques. FINDINGS: Lung Screening Specific (LUNG-RADS): Nodule 1 (image 25, series 3): 5.3 x 2.4 mm solid, smooth, parenchymal nodule in the left lung apex. New. Calcified granulomas. Potentially Significant Incidentals (LUNG-RADS category S): None. Pulmonary Incidentals: Emphysema. Bronchitis. Other Incidentals: Mild coronary artery calcifications. Calcified mediastinal and hilar lymph nodes. Diverticulum, duodenum. IMPRESSION; 1. LUNG-RADS category 2: Negative. Lung nodule(s) with benign appearance or behavior. 2. LUNG-RADS category S: Negative, no new/unknown potentially significant incidental findings requiring urgent additional evaluation. 3. Other incidental findings as above. RECOMMENDATIONS: Continued routine annual LDCT lung screening. Suggest next exam on or around June 2021. Thank you for choosing the [facility]ening [facility]. Interpreted By: Wilmar Rubin MD, 07/08/2020 4:27 PM Procedure Note Wilmar Rubin MD - 07/08/2020 EXAM: LUNG SCREENING LOW-DOSE CT THORAX WITHOUT CONTRAST DATE: 07/07/2020 HISTORY: Asymptomatic patient with history of smoking meeting CMShigh-risk criteria for lung screening. * 59 years * 40 pack years * Current smoker COMPARISON: 06/29/2019 TECHNIQUE: Noncontrast, helical, low-dose CT (LDCT) chest per standard departmental protocol. A dose lowering technique was used for this procedure, which may include, but is not limited to, dose reduction technique, automated exposure control, the use of iterativereconstruction, and ALARA (As Low As Reasonably Achievable) / Image Gently techniques. FINDINGS: Lung Screening Specific (LUNG-RADS): Nodule 1 (image 25, series 3): 5.3 x 2.4 mm solid, smooth, parenchymal nodule in the left lung apex. New. Calcified granulomas. Potentially Significant Incidentals (LUNG-RADS category S): None. Pulmonary Incidentals: Emphysema. Bronchitis. Other Incidentals: Mild coronary artery calcifications. Calcified mediastinal and hilar lymph nodes. Diverticulum, duodenum. IMPRESSION; 1. LUNG-RADS category 2: Negative. Lung nodule(s) with benign appearanceor behavior. 2. LUNG-RADS category S: Negative, no new/unknown potentiallysignificant incidental findings requiring urgent additional evaluation. 3. Other incidental findings as above. RECOMMENDATIONS: Continued routine annual LDCT lung screening. Suggestnext exam on or around June 2021. Thank you for choosing the [facility] Screening [facility]. Interpreted By: Wilmar Rubin MD, 07/08/2020 4:27 PM us Barrett Smith MD CT Final Result from Last 3 Months or Most Recently Relevant to Health Maintenance [place] [address] [employer] Advance Directives * Full Code (Latest Code Status on File) Date Activated Date Inactivated Comments 12/19/2019 2:15 PM 12/21/2019 11:33 AM Care Teams Clinical Account Specialist Relationship Specialty Start Date End Date Jason Treviño DO [address] [place] [address] PCP - General FAMILY PRACTICE 06/15/24
--- OUTSIDE RECORDS SUMMARY | 2024-12-25 16:31 | XMS_ITS | Encounter Summary ---
Author Organization [facility] Address [address] [place] [address] Care Team Providers Care Clinical Neuropsychologist Name Role Phone Shubham Flores MD Primary Care Provider Thierry Rivero MD Primary Care Provider Jason Treviño DO Primary Care Provider [phone] Encounter Details Date Type Department Care Team (Late st Contact Info) Description 12/24/2017 Abstract [facility] CONVERSION [address] [place] [address] , Generic ConversionMD Social History Tobacco Use Types Packs/Day Years Used Date Smoking Tobacco: Never Assessed Comments Unknown Sex and Gender Information Value Date Recorded Sex Assigned at Female 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
[2024-12-27 17:02] LABS: Hemoglobin A1C 4.8 % (<5.7)
== END 2024-12-25 14:40 | disposition home or self-care (01) ==
PROVIDERS: PCP Family Medicine; Visit Provider Family Medicine
DX: J44.1 Chronic obstructive pulmonary disease with (acute) exacerbation (principal)
CPT/HCPCS: 36415; 80053; 83036; 83880; 85025

== ENCOUNTER 2025-02-18 10:57 | Outpatient (CLI) | payer OTHER, SELFPAY ==
--- NOTE | ~2025-02-18 | US_ITS ---
EXAMINATION: US venous doppler [facility] DATE: 02/18/2025 11:19 INDICATION: Left lower limb pain and mild swelling TECHNIQUE: Grayscale ultrasound images without and with compression and Doppler ultrasound images of the left lower extremity veins were obtained. COMPARISON: None. FINDINGS: The visualized portions of left common femoral vein, profunda (deep) femoral vein, femoral vein, popl iteal vein, peroneal veins, posterior tibial veins, gastrocnemius vein and greater saphenous vein out flow are patent. IMPRESSION: 1. No deep venous thrombosis in the left lower limb. Reviewed, dictated and finalized at location A.
--- OUTSIDE RECORDS SUMMARY | 2025-02-18 11:19 | XMS_ITS | Encounter Summary ---
Author Organization [facility] Healthcare Address [address] [place] [address] Care Team Providers Care Crown Wheel Assembler Name Role Phone Yaquelin Goodman NP Primary Care Provider [phone] Jason Treviño DO Primary Care Provider Reason for Visit * Reason Onset Date Comments PMC Preprocedure 03/23/2024 Encounter Details Date Type Department Care Team (Late st Contact Info) Description 03/23/2024 Telephone [facility] at the [place] [facility] [address] [facility] Advanced Medicine [address] [place], [place] [id number] Nena Blackwood MD [address] [facility] [phone] [place], [place] [id number] PMC Preprocedure Social History Tobacco Use Types [...] on file Legal Sex Female 6:50 PM YARD MANAGER Gender Identity Female 12/04/2024 1:14 PM YARD MANAGER Sexual Orientation Straight 12/04/2024 1: 14 PM YARD MANAGER documented as of this encounter Plan of Treatment Not on file documented as of this encounter Goals Goal Patient Goal Type Associated Problems Recent Progress Patient-Stated? Author CCM Chronic Pain Care Plan Chronic Care Management Worsening( 10:03 AM CDT) Marisol Hollis RN Note: Problem: Chronic Pain Goals: 1. Minimize further functional decline 2. Maximize quality of life 3. Control pain Strategies: - Activity/exercise program recommendation - Conservative stepwise pain medicine strategy with multi-disciplinary approach - Recommend healthy lifestyle strategies and compensatory methods as needed documented as of this encounter Visit Diagnoses Not on filedocumented in this encounter Care Teams Crown Wheel Assembler Relationship Specialty Start Date End Date Yaquelin Goodman NP [address] [place] [address] PCP - General Nurse Practitioner 01/27/24 10/01/24 Jason Treviño DO [address] [place] [address] PCP - General Family Medicine 10/02/24 documented as of this encounter
--- OUTSIDE RECORDS SUMMARY | 2025-02-18 11:19 | XMS_ITS | Referral Summary ---
Author Organization [facility] [address] Address [address] [place] [address] Care Team Providers Care Wood Heel Attacher Name Role Phone CherJason valadez Primary Care Provider Encounters Date Type Department Care Team Description 01/30/[address] [facility] [place] [facility] [address] [place] [address] Advanced Medicine [address] [place] [address] Nena Blackwood MD 01/29/2025 9:52 AM CDT - 01/29/2025 11:59 PM CDT Hospital Encounter [facility] Center at the [facility] Advanced Medicine [address] [place] [address] Advanced Medicine [address] [place] [address] Nena Blackwood MD 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); Primary osteoarthritis of left hip; Primary osteoarthritis of left shoulder; Primary osteoarthritis of left knee; Lumbar radiculopathy Discharge Disposition: Discharge to home or self care 01/24/[address] [facility] [place] [facility] [address] [place] [address] Advanced Medicine [address] [place] [address] Nena Blackwood MD 01/18/[address] [facility] at [facility] Advanced Medicine [address] [place] [address] for Advanced Medicine [address] [place] [address] Nena Blackwood MD Pre Cert 01/17/[address] [facility] Advanced Medicine [address] [place] [address] for Advanced Medicine [address] [place] [address] Nena Blackwood MD PAIN SCORE 01/16/[address] [facility] [place] [facility] [address] [facility] Advanced Medicine [address] [place] [address] Nena Blackwood MD 12/04/[address] [facility] [place] [facility] [address] [facility] Advanced Medicine [address] [place] [address] Nena Blackwood MD Follow-up from Last 3 Months Allergies Active Allergy Reactions Criticality Noted Date Comments Penicillins Unknown High 09/20/2019 Sulfa (Sulfonamide Antibiotics) Unknown 12/08 Medications lithium 300 mg capsule Take 1 tablet/capsule (300 mg total) by mouth 1 capsule in AM Active ipratropium-albute roL (DUO-NEB) 0.5-2.5 mg/3 mL [...] day 90 tablet 3 02/23/20 24 Active dicyclomine (BENTYL) 20 mg tablet Active pantoprazole DR (PROTONIX) 20 mg EC tablet Active tiotropium bromide (Spiriva Respimat) 2.5 mcg/actuation inhaler INHALE 2 PUFFS DAILY, RINSE MOUTH AFTER USE 09/15/20 23 Active celecoxib (CeleBREX) 200 mg capsule Take 1 capsule (200 mg total) by mouth daily 30 capsule 1 09/14/20 24 Active Additional Information Patient not taking.Reported on 01/29/2025 promethazine (PHENERGAN) 25 mg tablet TAKE 1 [...] if needed. 2 tablet 10/30/19 25 Active carbidopa-levodopa (SINEMET) 10-100 mg per tablet 1 tablet orally twice a day; Take in the afternoon and evening 12/26/19 25 Active HYDROcodone-acetam inophen (NORCO) 5-325 mg per tablet 1 tablet orally every 12 hours As Needed for pain 01/19/20 25 Active lamoTRIgine (LaMICtal) 25 mg tablet take 25 mg (one tablet) BY MOUTH daily x 15 days, then 25 mg (one tablet) BY MOUTH TWO TIMES A DAY x 30 days] 01/19/20 25 Active levoFLOXacin (LEVAQUIN) 750 mg tablet TAKE 1 TABLET BY MOUTH EVERY DAY FOR 5 DAYS 12/23/19 25 Active albuterol HFA (PROVENTIL HFA,VENTOLIN HFA,PROAIR HFA) 90 mcg/actuation inhaler INHALE 1-2 PUFFS THREE TIMES DAILY NEEDED 01/16/20 25 Active nitrofurantoin monohydrate (MACROBID) 100 mg capsule TAKE 1 CAPSULE BY MOUTH EVERY 12 HOURS FOR 5 DAYS WITH A MEAL OR FOOD 02/12/20 25 Active lidocaine (LIDODERM) 5 % 1 patch topically daily; leave on most painful area for up to 12 hrs 01/09/20 Active escitalopram (LEXAPRO) 10 mg tablet Take 1 tablet every day by oral route in the morning for 30 days, for depression/anxi ety. 04/02/20 24 025 Discontin ued(Thera py completed ) Active Problems Problem Noted Date Diagnosed Date [...] you have a drink containing alcohol? Never 01/29/2025 Q2: How many drinks containi ng alcohol do you have on a typical day when you are drinking? Patient does not drink Q3: How often do you have si x or more drinks on one occasion? Never 01/29/2025 Comments No Sex and Gender Information Value Date Recorded Sex Assigned at Not on file Legal Sex Female 6:50 PM SOLAR ENERGY SALES SPECIALIST Gender Identity Female 12/04/2024 1:14 PM SOLAR ENERGY SALES SPECIALIST Sexual Orientation Straight 12/04/2024 1: 14 PM SOLAR ENERGY SALES SPECIALIST Last Filed Vital Signs Vital Sign Reading Time Taken Comments Blood Pressure 152/91 01/29/2025 10:01 AM CDT Pulse 81 01/29/2025 10:01 AM CDT Temperature 36.6 C (97.8 F) 01/29/2025 10:01 AM CDT Respiratory Rate 20 01/29/2025 10:01 AM CDT Oxygen Saturation 96% 01/29/2025 10:01 AM CDT Inhaled Oxygen Concentration - - Weight 63.5 kg (140 lb) 10/29/2024 2:20 PM SOLAR ENERGY SALES SPECIALIST Height 170.2 cm (5' 7 ) 10/29/2024 2:20 PM SOLAR ENERGY SALES SPECIALIST Body Mass Index 21.93 10/29/2024 2:20 PM SOLAR ENERGY SALES SPECIALIST Plan of Treatment Not on file Goals Goal Patient Goal Type Associated Problems Recent Progress Patient-Stated? Author CCM Chronic Pain Care Plan Chronic Care Management Worsening( 10:03 AM CDT) Marisol Hollis, RN Note: Problem: Chronic Pain Goals: 1. Minimize further functional decline 2. Maximize quality of life 3. Control pain Strategies: - Activity/exercise program recommendation - Conservative stepwise pain medicine strategy with multi-disciplinary approach - Recommend healthy lifestyle strategies and compensatory methods as needed Insurance [facility] [address] Care Teams Wood Heel Attacher Relationship Specialty Start Date End Date Jason Treviño DO [address] [place] [address] PCP - General Family Medicine 10/02/24
--- OUTSIDE RECORDS SUMMARY | 2025-02-18 11:19 | XMS_ITS | Encounter Summary ---
Author Organization [facility] Healthcare Address [address] [place] [address] Care Team Providers Care Capacity Manager Name Role Phone Yaquelin Goodman NP Primary Care Provider [phone] Jason Treviño DO Primary Care Provider Encounter Details Date Type Department Care Team (Late st Contact Info) Description 04/20/2024 Telephone [facility] at the [place] for [facility] [address] [facility] Advanced Medicine [address] [place], [place] [id number] Nena Blackwood MD [address] [facility] [address] [facility] [phone] [place], [place] [id number] Social History Tobacco Use Types Packs/Day Years [...] on file Legal Sex Female 6:50 PM EQUIPMENT SPECIALIST Gender Identity Female 12/04/2024 1:14 PM EQUIPMENT SPECIALIST Sexual Orientation Straight 12/04/2024 1: 14 PM EQUIPMENT SPECIALIST documented as of this encounter Plan of [...] on filedocumented in this encounter Care Teams Capacity Manager Relationship Specialty Start Date End Date Yaquelin Goodman NP [address] [place] [address] PCP - General Nurse Practitioner 01/27/24 10/01/24 Jason Treviño DO [address] [place] [address] PCP - General Family Medicine 10/02/24 documented as of this encounter
--- OUTSIDE RECORDS SUMMARY | 2025-02-18 11:19 | XMS_ITS | Encounter Summary ---
Author Organization [facility] Healthcare Address [address] [place] [address] Care Team Providers Care Turbine Technician Name Role Phone Yaquelin Goodman NP Primary Care Provider [phone] Jason Treviño DO Primary Care Provider Reason for Visit * Reason Onset Date Comments PA 02/28/2024 Encounter Details Date Type Department Care Team (Late st Contact Info) Description 02/28/2024 Telephone [facility] at the [place] for [facility] [address] [facility] Advanced Medicine [address] [place], [place] [id number] Nena Blackwood MD [address] [facility] [address] [facility] [phone] [place], [place] [id number] PA Social History Tobacco Use Types Packs/Day [...] on file Legal Sex Female 6:50 PM YOUTH MINISTER Gender Identity Female 12/04/2024 1:14 PM YOUTH MINISTER Sexual Orientation Straight 12/04/2024 1: 14 PM YOUTH MINISTER documented as of this encounter Plan of [...] on filedocumented in this encounter Care Teams Turbine Technician Relationship Specialty Start Date End Date Yaquelin Goodman NP [address] [place] [address] PCP - General Nurse Practitioner 01/27/24 10/01/24 Jason Treviño DO [address] [place] [address] PCP - General Family Medicine 10/02/24 documented as of this encounter
--- OUTSIDE RECORDS SUMMARY | 2025-02-18 11:19 | XMS_ITS | Clinical Summary ---
Author Organization [facility] [address] Address [address] [place] [address] Care Team Providers Care Mirror Installer Name Role Phone CherMallory valadezsh Valentin Primary Care Provider Allergies Active Allergy Reactions [...] 5 DAYS WITH A MEAL OR FOOD 11/21/19 25 Active lidocaine (LIDODERM) 5 % 1 patch topically daily; leave on most painful area for up to 12 hrs 01/09/20 25 Active escitalopram (LEXAPRO) 10 mg tablet Take [...] Type Department Care Team Description 01/30/2025 Telephone [facility] at the [place] for [facility] Medicine [address] [place] [address] Advanced Medicine [address] [place] [address] Nena Blackwood MD 01/29/2025 9:52 AM CDT - 01/29/2025 11:59 PM CDT Hospital Encounter [facility] [place] [facility] [address] [place] [address] Advanced Medicine [address] [place] [address] Nena Blackwood MD 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 Advanced Medicine [address] [place] [address] Advanced Medicine [address] [place] [address] Nena Blackwood MD 01/18/2025 Telephone [facility] at [facility] [place] for [facility] Medicine [address] [place] [address] Advanced Medicine [address] [place] [address] Nena Blackwood MD Pre Cert 01/17/2025 Telephone [facility] at [facility] [place] [facility] [address] [facility] Advanced Medicine [address] [place] [address] Nena Blackwood MD PAIN SCORE 01/16/2025 Telephone [facility] at [facility] [place] [facility] [address] [facility] Advanced Medicine [address] [place] [address] Nena Blackwood MD 12/04/2024 Telephone [facility] at the [place] for [facility] Advanced Medicine [address] [place] [address] Nena Blackwood MD Follow-up from Last 3 Months Surgical History Surgery [...] on file Legal Sex Female 6:50 PM FINANCE BUSINESS MANAGER Gender Identity Female 12/04/2024 1:14 PM FINANCE BUSINESS MANAGER Sexual Orientation Straight 12/04/2024 1: 14 PM FINANCE BUSINESS MANAGER Obstetrics History Last Filed Vital Signs Vital Sign Reading Time Taken Comments Blood Pressure 152/91 01/29/2025 10:01 AM CDT Pulse 81 01/29/2025 10:01 AM CDT Temperature 36.6 C (97.8 F) 01/29/2025 10:01 AM CDT Respiratory Rate 20 01/29/2025 10:01 AM CDT Oxygen Saturation 96% 01/29/2025 10:01 AM CDT Inhaled Oxygen Concentration - - Weight 63.5 kg (140 lb) 10/29/2024 2:20 PM FINANCE BUSINESS MANAGER Height 170.2 cm (5' 7 ) 10/29/2024 2:20 PM FINANCE BUSINESS MANAGER Body Mass Index 21.93 10/29/2024 2:20 PM FINANCE BUSINESS MANAGER Plan of Treatment Health Maintenance Due Date [...] season) 2024 09/22/2021, 01/24/2021, 12/27/2020 Influenza Vaccine (Season Ended) 2025 09/04/20 19, 08/09/2012 Goals Goal Patient Goal Type Associated Problems Recent Progress Patient-Stated? Author CCM Chronic Pain Care Plan Chronic Care Management Worsening( 10:03 AM CDT) No Minor, Marisol Montenegro, RN Note: Problem: Chronic Pain Goals: 1. Minimize further functional decline 2. Maximize quality of life 3. Control pain Strategies: - Activity/exercise program recommendation - Conservative stepwise pain medicine strategy with multi-disciplinary approach - Recommend healthy lifestyle strategies and compensatory methods as needed [place] [place] [address] Care Teams Mirror Installer Relationship Specialty Start Date End Date Jason Treviño DO [facility] [place] [address] PCP - General Family Medicine 10/02/24
--- OUTSIDE RECORDS SUMMARY | 2025-02-18 11:20 | XMS_ITS | Encounter Summary ---
Author Organization [facility] Address [address] [place] [address] Care Team Providers Care Ship Pilot Name Role Phone Shubham Flores MD Primary Care Provider [phone] Thierry Rivero MD Primary Care Provider Jason Treviño DO Primary Care Provider [phone] Encounter Details Date Type Department Care Team (Late st Contact Info) Description 12/24/2017 Abstract [facility] CONVERSION [address] [place] [address] , Generic ConversionMD Social History Tobacco Use Types Packs/Day Years Used Date Smoking Tobacco: Never Assessed Comments Unknown Sex and Gender Information Value Date Recorded Sex Assigned at Female 2024 10:40 AM WOOD ROUTER HAND Legal Sex Female 6:57 PM CDT Gender [...] documented as of this encounter Care Teams Ship Pilot Relationship Specialty Start Date End Date Shubham Flores MD [address] [place] [address] PCP - General FAMILY PRACTICE 05/07/19 07/06/20 Thierry Rivero MD [address] [place] [address] PCP - General FAMILY PRACTICE 07/07/20 06/14/24 Jason Treviño DO [address] [place] [address] PCP - General FAMILY PRACTICE 06/15/24 documented as of this encounter
--- OUTSIDE RECORDS SUMMARY | 2025-02-18 11:20 | XMS_ITS | Encounter Summary ---
Author Organization [facility] Healthcare Address [address] [place] [address] Care Team Providers Care Heating Systems Installer Name Role Phone Jason Treviñoh Primary Care Provider Encounter Details Date Type Department Care Team (Late st Contact Info) Description 01/30/2025 Telephone [facility] at the [place] for Advanced Medicine [address] [facility] Advanced Medicine [address] [place] [address] Nena Blackwood MD [address] [facility] 14[address] [facility] [phone] [place] [address] Social History Tobacco Use Types Packs/Day Years [...] on file Legal Sex Female 6:50 PM PRINT BINDING AND FINISHING WORKER Gender Identity Female 12/04/2024 1:14 PM PRINT BINDING AND FINISHING WORKER Sexual Orientation Straight 12/04/2024 1: 14 PM PRINT BINDING AND FINISHING WORKER documented as of this encounter Miscellaneous Notes * Telephone Encounter - Geraldine Escudero RN - 01/31/2025 4:02 PM CDT Spoke with patient. Let her know that I was the one that discharged her after her visit. I was also the one to get the room ready for next patient. No medications were found in exam room, and no found medication reported in the clinic. Understanding verbalized. Patient confident that the medications will turn up. documented in this encounter Plan of Treatment [...] on filedocumented in this encounter Care Teams Heating Systems Installer Relationship Specialty Start Date End Date Jason Treviño DO [address] [place] [address] PCP - General Family Medicine 10/02/24 documented as of this encounter
--- OUTSIDE RECORDS SUMMARY | 2025-02-18 11:20 | XMS_ITS | Encounter Summary ---
Author Organization [facility] Address [address] [place] [address] Care Team Providers Care Sack Maker Name Role Phone Shubham Flores MD Primary Care Provider Thierry Rivero MD Primary Care Provider Jason Treviño DO Primary Care Provider [phone] Encounter Details Date Type Department Care Team (Late st Contact Info) Description 03/17/2019 Abstract [facility] CONVERSION [address] [place] [address] , Generic ConversionMD Social History Tobacco Use Types Packs/Day Years Used Date Smoking Tobacco: Never Assessed Comments Unknown Sex and Gender Information Value Date Recorded Sex Assigned at Female 2024 10:40 AM EXHIBITS CURATOR Legal Sex Female 6:57 PM CDT Gender [...] documented as of this encounter Care Teams Sack Maker Relationship Specialty Start Date End Date Shubham Flores MD [address] [place] [address] PCP - General FAMILY PRACTICE 05/07/19 07/06/20 Thierry Rivero MD [address] [place] [address] PCP - General FAMILY PRACTICE 07/07/20 06/14/24 Jason Treviño DO [address] [place] [address] PCP - General FAMILY PRACTICE 06/15/24 documented as of this encounter
--- OUTSIDE RECORDS SUMMARY | 2025-02-18 11:20 | XMS_ITS | Clinical Summary ---
Author Organization [facility] System Address [facility] [place] [address] Care Team Providers Care Interior Block Wirer Name Role Phone Jason Treviño DO Primary Care Provider [phone] Allergies Active Allergy Reactions Criticality Noted Date [...] Acute on chronic respiratory failure with hypoxia ([facility]) 12/20/2019 Acute exacerbation of chroni c obstructive pulmonary disease (COPD) ([facility]) 12/19/2019 Leukocytosis 12/19/2019 Depression Encounters Date Type Department Care Team Description 2024 10:40 AM METAL MOLDER - 2024 11:59 PM METAL MOLDER Hospital Encounter [facility] [address] Jason Treviño DO Discharge Disposition: Home or Self Care (Routine Discharge) [address] [facility] [place] [address] Jason Treviño DO 2024 Travel from Last 3 Months Family History Medical History Relation Comments Heart Disease Father Hypertension Father Cancer Mother Heart Disease Mother Hypertension Mother Relation Status Comments Father Mother Social History Tobacco Use Types Packs/Day Years Used Date Smoking Tobacco: Every Day Cigarettes 1.5 31.4 Started: 2023 Smokeless Tobacco: Never Tobacco Cessation:Ready [...] Sex Assigned at Female 2024 10:40 AM METAL MOLDER Legal Sex Female 6:57 PM CDT Gender [...] Colorectal Cancer Screening Colonoscopy (10 Years) 1958 Hepatitis C 1976 DTaP, Tdap and Td Vaccines ( 1 - Tdap) 1977 Pneumococcal Vaccine: 50+ Years (1 of 2 - PCV) 1977 Zoster Vaccines (1 of 2) 2008 RSV Immunization or 60+ Years (1 - Risk 60-74 years 1-dose series) 2018 Lung Cancer Screening 07/07/2021 07/07/2020 , 06/29/2019 Mammogram Screening 09/16/2022 09/16/2020, 09/05/2019 Dexa Scan (General) 2023 COVID-19 Vaccine (1 - 2023-2 5 season) 2024 Meningococcal B Vaccine Aged Out No [...] URINE BACTERIA CULTURE Routine 2024 10:55 AM METAL MOLDER Dysuria MG SCREENING W GIAN ADELE DIGI Routine 09/16/2020 11:46 AM METAL MOLDER Visit for screening mammogram CT LUNG SCREENING Routine 07/07/2020 12: 55 PM CDT Smoking greater than 30 pack years from Last 3 Months or Most Recently Relevant to Health Maintenance Results * URINE BACTERIA CULTURE (2024 10:55 AM METAL MOLDER) SPEC DESCRIPTION URINE CLEAN CATCH 2024 11:02 AM METAL MOLDER [facility] SPECIAL REQUESTS NO SPECIAL REQUEST 2024 11:02 AM METAL MOLDER [facility] CULTURE RESULT EQUAL OR >100,000 CFU/mL ESCHERICHIA COLI 11/25/2024 7:41 AM METAL MOLDER [facility] URINE SPECIMEN OBTAINED BY CLEAN CATCH PROCEDURE / Unknown 2024 10:55 AM METAL MOLDER 2024 11:00 AM METAL MOLDER Narrative Organism Antibiotic Method Susceptibility Escherichia coli [...] MICROBIOLOGY - GENERAL ORDERAB LES Final Result [facility] [address] [place] [address], [place] [phone] [id number] [facility] [address] [place] [address], [place] [phone] * MG SCREENING W GIAN ADELE DIGI (09/16/2020 11:46 AM METAL MOLDER) Anatomical Region Laterality Modality Breast Bilateral Mammography 09/17/2020 8:22 AM METAL MOLDER Impressions 09/17/2020 8:23 AM METAL MOLDER IMPRESSION: No suspicious change since the previous exams. Recommendation: 1: Routine screening mammogram Bilateral in 1 Year Assessment: ACR BI-RADS Category 2 - Benign. Interpreted By: Omer Garner MD, 09/17/2020 8:22 AM Narrative 09/17/2020 8:23 AM METAL MOLDER Examination: Digital screening mammogram with CAD. Clinical [...] followup in one year would seem adequate. Thierry Rivero MD MAMMO Final Result * [...] June 2021. Thank you for choosing the [facility] Lung Screening Program. Interpreted By: Wilmar Rubin [...] June 2021. Thank you for choosing the [facility] Lung Screening Program. Interpreted By: Wilmar Rubin MD, 07/08/2020 4:27 PM Barrett Smith MD CT Final Result from Last 3 Months or Most Recently Relevant to Health Maintenance Insurance A, [address] [place], [place] [id number] [place] [address] Advance Directives * Full Code (Latest Code Status on File) Date Activated Date Inactivated Comments 12/19/2019 2:15 PM 12/21/2019 11:33 AM Care Teams Interior Block Wirer Relationship Specialty Start Date End Date Jason Treviño DO [address] [place] [address] PCP - General FAMILY PRACTICE 06/15/24
== END 2025-02-18 10:58 | disposition home or self-care (01) ==
PROVIDERS: PCP Family Medicine; Visit Provider Family Medicine
DX: M79.89 Other specified soft tissue disorders (principal); I82.409 Acute embolism and thrombosis of unspecified deep veins of unspecified lower extremity
CPT/HCPCS: 93971

== ENCOUNTER 2025-03-06 10:41 | Outpatient (CLI) | payer OTHER, SELFPAY ==
--- OUTSIDE RECORDS SUMMARY | 2025-03-06 10:47 | XMS_ITS | Encounter Summary ---
Author Organization [facility] Address [address] [place] [address] Care Team Providers Care Fish Protector Name Role Phone Yaquelin Goodman NP Primary Care Provider [phone] Jason Treviño DO Primary Care Provider Reason for Visit * Reason Onset Date Comments PMC Preprocedure 03/23/2024 Encounter Details Date Type Department Care Team (Late st Contact Info) Description 03/23/2024 Telephone [facility] at the [place] for [facility] [address] [facility] Advanced Medicine [address] [place], [place] [id number] Nena Blackwood MD [address] [facility] [id number] [place], [place] [id number] PMC Preprocedure Social History Tobacco Use Types [...] on file Legal Sex Female 6:50 PM PAINTER PLATE Gender Identity Female 12/04/2024 1:14 PM PAINTER PLATE Sexual Orientation Straight 12/04/2024 1: 14 PM PAINTER PLATE documented as of this encounter Plan of [...] on filedocumented in this encounter Care Teams Fish Protector Relationship Specialty Start Date End Date Yaquelin Goodman NP [address] [place] [address] PCP - General Nurse Practitioner 01/27/24 10/01/24 Jason Treviño DO [address] [place] [address] PCP - General Family Medicine 10/02/24 documented as of this encounter
--- OUTSIDE RECORDS SUMMARY | 2025-03-06 10:47 | XMS_ITS | Encounter Summary ---
Author Organization [facility] Healthcare Address [address] [place] [address] Care Team Providers Care Registered Physical Therapist Name Role Phone Yaquelin Goodman NP Primary Care Provider [phone] Jason Treviño DO Primary Care Provider Encounter Details Date Type Department Care Team (Late st Contact Info) Description 04/20/2024 Telephone [facility] the [place] for [facility] [address] [facility] Advanced Medicine [address] [place], [place] [phone] Nena Blackwood MD [address] [facility] [address] [facility] [phone] [place], [place] [id number] Social History Tobacco Use Types Packs/Day Years [...] on file Legal Sex Female 6:50 PM INFORMATION TECHNOLOGY ARCHITECT Gender Identity Female 12/04/2024 1:14 PM INFORMATION TECHNOLOGY ARCHITECT Sexual Orientation Straight 12/04/2024 1: 14 PM INFORMATION TECHNOLOGY ARCHITECT documented as of this encounter Plan of [...] on filedocumented in this encounter Care Teams Registered Physical Therapist Relationship Specialty Start Date End Date Yaquelin Goodman NP [address] [place] [address] PCP - General Nurse Practitioner 01/27/24 10/01/24 Jason Treviño DO [address] [place] [address] PCP - General Family Medicine 10/02/24 documented as of this encounter
--- OUTSIDE RECORDS SUMMARY | 2025-03-06 10:47 | XMS_ITS | Referral Summary ---
Author Organization [facility] [address] Address [address] [place] [address] Care Team Providers Care Textile Converter Name Role Phone CherJason valadez Primary Care Provider Encounters Date Type Department Care Team Description 01/30/2025 Telephone [facility] [place] [facility] [address] [place] [address] Advanced Medicine [address] [place] [address] Nena Blackwood MD 01/29/2025 9:52 AM CDT - 01/29/2025 11:59 PM CDT Hospital Encounter [facility] at [facility] Advanced Medicine [address] [place] [address] Advanced Medicine [address] [place] [address] Nena Blackwood MD 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); Primary osteoarthritis of left hip; Primary osteoarthritis of left shoulder; Primary osteoarthritis of left knee; Lumbar radiculopathy Discharge Disposition: Discharge to home or self care 01/24/2025 Orders Only [facility] [place] [facility] [address] [place] [address] Advanced Medicine [address] [place] [address] Nena Blackwood MD 01/18/2025 Telephone [facility] Advanced Medicine [address] [place] [address] for Advanced Medicine [address] [place] [address] Nena Blackwood MD Pre Cert 01/17/2025 Telephone [facility] Advanced Medicine [address] [place] [address] for Advanced Medicine [address] [place] [address] Nena Blackwood MD PAIN SCORE 01/16/2025 Telephone [facility] [place] [facility] [address] [facility] Advanced [facility] [address] [place] [address] Nena Blackwood MD from Last 3 Months Allergies Active Allergy [...] up to 12 hrs 01/09/20 25 Active Active Problems Problem Noted Date [...] on file Legal Sex Female 6:50 PM PSYCH NURSE Gender Identity Female 12/04/2024 1:14 PM PSYCH NURSE Sexual Orientation Straight 12/04/2024 1: 14 PM PSYCH NURSE Last Filed Vital Signs Vital Sign Reading Time Taken Comments Blood Pressure 152/91 01/29/2025 10:01 AM CDT Pulse 81 01/29/2025 10:01 AM CDT Temperature 36.6 C (97.8 F) 01/29/2025 10:01 AM CDT Respiratory Rate 20 01/29/2025 10:01 AM CDT Oxygen Saturation 96% 01/29/2025 10:01 AM CDT Inhaled Oxygen Concentration - - Weight 63.5 kg (140 lb) 10/29/2024 2:20 PM PSYCH NURSE Height 170.2 cm (5' 7) 10/29/2024 2:20 PM PSYCH NURSE Body Mass Index 21.93 10/29/2024 2:20 PM PSYCH NURSE Plan of Treatment Not on file Goals [...] strategies and compensatory methods as needed Insurance Care Teams Textile Converter Relationship Specialty Start Date End Date Jason Treviño DO [address] [place] [address] PCP - General Family Medicine 10/02/24
--- OUTSIDE RECORDS SUMMARY | 2025-03-06 10:47 | XMS_ITS | Encounter Summary ---
Author Organization [facility] Healthcare Address [address] [place] [address] Care Team Providers Care Wire Mesh Knitter Name Role Phone Yaquelin Goodman NP Primary Care Provider [phone] Jason Treviño DO Primary Care Provider Reason for Visit * Reason Onset Date Comments PA 02/28/2024 Encounter Details Date Type Department Care Team (Late st Contact Info) Description 02/28/2024 Telephone [facility] Pain Center at the [place] for Advanced Medicine [address] [facility] Advanced Medicine [address] [place], [place] [phone] Nena Blackwood MD [address] [facility] [address] [facility] [phone] [place], [place] [id number] PA Social History Tobacco Use Types Packs/Day [...] on file Legal Sex Female 6:50 PM MEDICAL OPERATIONS SUPERVISOR Gender Identity Female 12/04/2024 1:14 PM MEDICAL OPERATIONS SUPERVISOR Sexual Orientation Straight 12/04/2024 1: 14 PM MEDICAL OPERATIONS SUPERVISOR documented as of this encounter Plan of [...] on filedocumented in this encounter Care Teams Wire Mesh Knitter Relationship Specialty Start Date End Date Yaquelin Goodman NP [address] [place] [address] PCP - General Nurse Practitioner 01/27/24 10/01/24 Jason Treviño DO [address] [place] [address] PCP - General Family Medicine 10/02/24 documented as of this encounter
--- OUTSIDE RECORDS SUMMARY | 2025-03-06 10:47 | XMS_ITS | Clinical Summary ---
Author Organization [facility] [address] Address [address] [place] [address] Care Team Providers Care Effervescent Salts Compounder Name Role Phone CherMallory valadezsh Valentin Primary [...] Type Department Care Team Description 01/30/2025 Telephone [facility] at the [place] for [facility] Medicine [address] [place] [address] Advanced Medicine [address] [place] [address] Nena Blackwood MD 01/29/2025 9:52 AM CDT - 01/29/2025 11:59 PM CDT Hospital Encounter [facility] [address] Advanced Medicine [address] [place] [address] Nena Blackwood MD 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); Primary osteoarthritis of left hip; Primary osteoarthritis of left shoulder; Primary osteoarthritis of left knee; Lumbar radiculopathy Discharge Disposition: Discharge to home or self care 01/24/2025 Orders Only [facility] Medicine [address] [place] [address] Advanced Medicine [address] [place] [address] Nena Blackwood MD 01/18/2025 Telephone [facility] Medicine [address] [place] [address] Advanced Medicine [address] [place] [address] Nena Blackwood MD Pre Cert 01/17/2025 Telephone [facility] [address] [place] [address] Advanced Medicine [address] [place] [address] Nena Blackwood MD PAIN SCORE 01/16/2025 Telephone [facility] [place] [facility] Medicine [address] [facility] Advanced [facility] [address] [place] [address] Nena Blackwood MD from Last 3 Months Surgical History Surgery [...] on file Legal Sex Female 6:50 PM SURFACE PLATE FINISHER Gender Identity Female 12/04/2024 1:14 PM SURFACE PLATE FINISHER Sexual Orientation Straight 12/04/2024 1: 14 PM SURFACE PLATE FINISHER Obstetrics History Last Filed Vital Signs Vital Sign Reading Time Taken Comments Blood Pressure 152/91 01/29/2025 10:01 AM CDT Pulse 81 01/29/2025 10:01 AM CDT Temperature 36.6 C (97.8 F) 01/29/2025 10:01 AM CDT Respiratory Rate 20 01/29/2025 10:01 AM CDT Oxygen Saturation 96% 01/29/2025 10:01 AM CDT Inhaled Oxygen Concentration - - Weight 63.5 kg (140 lb) 10/29/2024 2:20 PM SURFACE PLATE FINISHER Height 170.2 cm (5' 7) 10/29/2024 2:20 PM SURFACE PLATE FINISHER Body Mass Index 21.93 10/29/2024 2:20 PM SURFACE PLATE FINISHER Plan of Treatment Health Maintenance Due Date [...] Care Management Worsening( 10:03 AM CDT) No Chris, Marisol Montenegro, RN Note: Problem: Chronic Pain Goals: 1. Minimize further functional decline 2. Maximize quality of life 3. Control pain Strategies: - Activity/exercise program recommendation - Conservative stepwise pain medicine strategy with multi-disciplinary approach - Recommend healthy lifestyle strategies and compensatory methods as needed Insurance Care Teams Effervescent Salts Compounder Relationship Specialty Start Date End Date Jason Treviño DO [address] [place] [address] PCP - General Family Medicine 10/02/24
[2025-03-06 11:10] LABS: Basophils Absolute Auto 0.06 K/mm3 (0.00-0.10); Basophils Percent Auto 0.7 % (0.0-1.0); Eosinophils Absolute Auto 0.75 K/mm3 (0.02-0.50); Eosinophils Percent Auto 8.8 % (1.0-6.0); Hematocrit 45.6 % (35.0-42.0); Hemoglobin 14.7 g/dL (11.7-13.8); Immature Granulocyte Absolute 0.01 K/mm3 (0.00-0.00); Immature Granulocyte Percent A 0.1 % (0.0-0.0); Lymphocytes Absolute Auto 2.38 K/mm3 (1.10-4.50); Mean Corpuscular HGB Conc 32.2 g/dL (32-36); Mean Corpuscular Hemoglobin 32.1 pg (27.0-31.0); Mean Corpuscular Volume 99.6 fL (78.0-102.0); Mean Platelet Volume 9.2 fl (9.2-11.8); Monocytes Absolute Auto 0.61 K/mm3 (0.10-0.90); Monocytes Percent Auto 7.2 % (2.0-11.0); Neutrophils Percent Auto 55.2 % (50.0-70.0); Platelet Count Result 302 K/mm3 (150-420); Red Blood Count 4.58 M/mm3 (4.20-5.40); White Blood Count 8.5 K/mm3 (4.8-10.8)
[2025-03-06 13:15] LABS: Alanine Aminotransferase 8 U/L (6-35); Albumin Level 4.1 g/dL (3.5-5.1); Alkaline Phosphatase 80 U/L (38-126); Anion Gap 1 mmol/L (4-12); Aspartate Amino Transferase 20 U/L (14-36); Bilirubin,Total 0.8 mg/dL (0.2-1.3); Blood Urea Nitrogen 12 mg/dL (7-17); Calcium 9.6 mg/dL (8.4-10.2); Carbon Dioxide 31 mmol/L (22-30); Chloride 105 mmol/L (98-107); Estimated Glomerular Filt Rate > 60; Glucose 92 mg/dL (65-110); Iron 188 ug/dL (37-170); Magnesium 2.1 mg/dL (1.6-2.3); Osmolality Calculated 283 mOsm/kg (285-295); Sodium 137 mmol/L (137-145); Total Protein 6.4 g/dL (6.3-8.2)
[2025-03-06 13:25] LABS: Percent Iron Saturation 72 % (20-50)
[2025-03-06 13:59] LABS: Thyroid Stimulating Hormone Reflex 0.786 uIU/mL (0.465-4.68)
[2025-03-06 14:21] LABS: Folic Acid 12.4 ng/mL (2.76->20)
[2025-03-07 23:54] LABS: Arsenic, Blood <10 mcg/L (<23); Mercury, Blood <5 mcg/L (<OR=10)
[2025-03-09 05:08] LABS: Lead, Blood <1.0 mcg/dL (<3.5)
[2025-03-10 17:57] LABS: Vitamin D 1,25 (OH)2 Total 36 pg/mL (18-72); Vitamin D2 1,25 (OH)2 <8 pg/mL; Vitamin D3 1,25 (OH)2 36 pg/mL
== END 2025-03-06 10:42 | disposition home or self-care (01) ==
LOC: CHSLAB 10:41
PROVIDERS: Nurse Practitioner Family; PCP Family Medicine; Visit Provider Family Medicine
DX: R73.09 Other abnormal glucose (principal); E53.8 Deficiency of other specified B group vitamins; R25.1 Tremor, unspecified; E03.9 Hypothyroidism, unspecified; R74.01 Elevation of levels of liver transaminase levels; F32.A Depression, unspecified; G25.81 Restless legs syndrome; D64.9 Anemia, unspecified; D50.9 Iron deficiency anemia, unspecified
CPT/HCPCS: 36415; 80053; 82175; 82607; 82652; 82728; 82746; 83036; 83540; 83550; 83655; 83735; 83825; 84443; 85025

== ENCOUNTER 2025-05-22 09:07 | Outpatient (CLI) | payer OTHER, SELFPAY ==
--- OUTSIDE RECORDS SUMMARY | 2025-05-22 09:16 | XMS_ITS | Encounter Summary ---
Author Organization [facility] Healthcare Address [address] [place] [address] Care Team Providers Care It Consulting Manager Name Role Phone Yaquelin Goodman NP Primary Care Provider [phone] Jason Treviño DO Primary Care Provider Reason for Visit * Reason Onset Date Comments PMC Preprocedure 03/23/2024 Encounter Details Date Type Department Care Team (Late st Contact Info) Description 03/23/2024 Telephone [facility] [place] for Advanced Medicine [address] [facility] Advanced Medicine [address] [place], [place] [phone] Nena Blackwood MD [address] [facility] [phone] [place], [place] [phone] PMC Preprocedure Social History Tobacco Use Types [...] on file Legal Sex Female 6:50 PM DISTILLERY LABORER Gender Identity Female 12/04/2024 1:14 PM DISTILLERY LABORER Sexual Orientation Straight 12/04/2024 1: 14 PM DISTILLERY LABORER documented as of this encounter Plan of [...] on filedocumented in this encounter Care Teams It Consulting Manager Relationship Specialty Start Date End Date Yaquelin Goodman NP [address] [place] [address] PCP - General Nurse Practitioner 01/27/24 10/01/24 Jason Treviño DO [address] [place] [address] PCP - General Family Medicine 10/02/24 documented as of this encounter
--- OUTSIDE RECORDS SUMMARY | 2025-05-22 09:16 | XMS_ITS | Encounter Summary ---
Author Organization [facility] Healthcare Address [address] [place] [address] Care Team Providers Care Well Logging Operator Mud Analysis Name Role Phone Yaquelin Goodman NP Primary Care Provider [phone] Jason Treviño DO Primary Care Provider Encounter Details Date Type Department Care Team (Late st Contact Info) Description 04/20/2024 Telephone [facility] Center at the [place] for [facility] Medicine [address] [facility] Advanced Medicine [address] [place], [place] [phone] Nena Blackwood MD [address] [facility] [address] [facility] [phone] [place], [place] [phone] Social History Tobacco Use Types Packs/Day Years [...] on file Legal Sex Female 6:50 PM RAVELER Gender Identity Female 12/04/2024 1:14 PM RAVELER Sexual Orientation Straight 12/04/2024 1: 14 PM RAVELER documented as of this encounter Plan of [...] on filedocumented in this encounter Care Teams Well Logging Operator Mud Analysis Relationship Specialty Start Date End Date Yaquelin Goodman NP [address] [place] [address] PCP - General Nurse Practitioner 01/27/24 10/01/24 Jason Treviño DO [address] [place] [address] PCP - General Family Medicine 10/02/24 documented as of this encounter
--- OUTSIDE RECORDS SUMMARY | 2025-05-22 09:16 | XMS_ITS | Clinical Summary ---
Author Organization [facility] [address] Address [address] [place] [address] Care Team Providers Care Manager Legal Name Role Phone CherMallory valadezsh Valentin Primary [...] 1-2 PUFFS THREE TIMES DAILY NEEDED 01/16/20 Active nitrofurantoin monohydrate (MACROBID) 100 mg capsule TAKE 1 CAPSULE BY MOUTH EVERY 12 HOURS FOR 5 DAYS WITH A MEAL OR FOOD 11/21/19 Active lidocaine (LIDODERM) 5 % 1 patch topically daily; leave on most painful area for up to 12 hrs 01/09/20 Active Active Problems Problem Noted Date Diagnosed Date Lumbar radiculopathy 04/03/2024 Anxiety 04/03/2024 Osteoarthritis of left shoulder 03/08/2024 Osteoarthritis of left knee 03/08/2024 Primary osteoarthritis of left hip 01/10/2024 Anxiety disorder due to multiple medical problem s 01/10/2024 Surgical History Surgery Date Site/Laterality Comments LAPAROSCOPIC CHOLECYSTECTOMY Medical History Medical History Date Comments Weight loss Poor appetite Wears glasses Drainage from nose Mouth sores Cough Shortness of breath Nausea Diarrhea Arthritis Muscle pain Occasional tremors Depression COPD (chronic obstructive pulmonary disease) Anxiety Low back pain Family History Medical [...] on file Legal Sex Female 6:50 PM BUCKLE ATTACHING MACHINE OPERATOR Gender Identity Female 12/04/2024 1:14 PM BUCKLE ATTACHING MACHINE OPERATOR Sexual Orientation Straight 12/04/2024 1: 14 PM BUCKLE ATTACHING MACHINE OPERATOR Obstetrics History Last Filed Vital Signs Vital Sign Reading Time Taken Comments Blood Pressure 152/91 01/29/2025 10:01 AM CDT Pulse 81 01/29/2025 10:01 AM CDT Temperature 36.6 C (97.8 F) 01/29/2025 10:01 AM CDT Respiratory Rate 20 01/29/2025 10:01 AM CDT Oxygen Saturation 96% 01/29/2025 10:01 AM CDT Inhaled Oxygen Concentration - - Weight 63.5 kg (140 lb) 10/29/2024 2:20 PM BUCKLE ATTACHING MACHINE OPERATOR Height 170.2 cm (5' 7) 10/29/2024 2:20 PM BUCKLE ATTACHING MACHINE OPERATOR Body Mass Index 21.93 10/29/2024 2:20 PM BUCKLE ATTACHING MACHINE OPERATOR Plan of Treatment Health Maintenance Due Date [...] 2024 09/22/2021, 01/24/2021, 12/27/2020 Influenza Vaccine (#1) 2025 09/04/2019, 2011 Goals Goal Patient Goal Type [...] strategies and compensatory methods as needed Insurance [place] [address] Care Teams Manager Legal Relationship Specialty Start Date End Date Jason Treviño DO [address] [place] [address] PCP - General Family Medicine 10/02/24
--- OUTSIDE RECORDS SUMMARY | 2025-05-22 09:16 | XMS_ITS | Encounter Summary ---
Author Organization [facility] Healthcare Address [address] [place] [address] Care Team Providers Care Bell Person Name Role Phone Yaquelin Goodman NP Primary Care Provider [phone] [phone] Jason Treviño DO Primary Care Provider Reason for Visit * Reason Onset Date Comments PA 02/28/2024 Encounter Details Date Type Department Care Team (Late st Contact Info) Description 02/28/2024 Telephone [facility] Pain Center at the [place] for Advanced Medicine [address] [facility] Advanced Medicine [address] [place], [place] [phone] Nena Blackwood MD [address] [facility] [address] [facility] [phone] [place], [place] [phone] PA Social History Tobacco Use Types Packs/Day [...] on file Legal Sex Female 6:50 PM SCALDER Gender Identity Female 12/04/2024 1:14 PM SCALDER Sexual Orientation Straight 12/04/2024 1: 14 PM SCALDER documented as of this encounter Plan of [...] on filedocumented in this encounter Care Teams Bell Person Relationship Specialty Start Date End Date Yaquelin Goodman NP [address] [place] [address] PCP - General Nurse Practitioner 01/27/24 10/01/24 Jason Treviño DO [address] [place] [address] PCP - General Family Medicine 10/02/24 documented as of this encounter
[2025-05-22 09:25] LABS: Add Urine Microscopic? NO; Appearance Urine Clear (Clear); Glucose Urine UA Negative (Negative); Leukocyte Esterase Ur Negative LEU/UL (Negative); Nitrate Urine Negative (Negative); Specific Grav Ur 1.010 (1.010-1.020)
== END 2025-05-22 09:08 | disposition home or self-care (01) ==
PROVIDERS: PCP Family Medicine; Visit Provider Family Medicine
DX: R32 Unspecified urinary incontinence (principal)
CPT/HCPCS: 81003